=== PATIENT | male | born 2005 | race Caucasian/White ===

== ENCOUNTER 2025-03-22 02:31 | Inpatient (IN) ==
[2025-03-22] MEDS: SODIUM CHLORIDE 0.9% 1,000 ML IV ONE (03:10)
[2025-03-22 03:18] LABS: Hematocrit (blood only) 35.3 % (42.0-52.0); Hemoglobin 11.0 g/dl (14.0-18.0); Immature Granulocytes # (auto) 0.08 K/uL (0.01-0.20); Immature Granulocytes % (auto) 0.6 %; Mean Corpuscular Hemoglobin 23.4 pg (25.0-34.0); Mean Corpuscular Volume 75.1 fL (80.0-100.0); Platelet Count 481 K/uL (130-400); RDW Standard Deviation 39.4 fL (36.4-46.3); Red Blood Count 4.70 M/uL (4.70-6.10); White Blood Count 13.74 K/ul (4.8-10.8)
[2025-03-22 03:27] LABS: Appearance Urine Clear (Clear); Glucose Urine UA Negative (Negative)
[2025-03-22 03:37] LABS: Alanine Aminotransferase 13.0 U/L (7-52); Albumin Globulin Ratio 0.9 (0.9-2); Alkaline Phosphatase 57.0 U/L (34-104); Anion Gap 6.0 (3-11); Bilirubin,Total 0.2 mg/dl (0.2-1.0); Blood Urea Nitrogen 15.0 mg/dl (6-23); Calcium 9.1 mg/dl (8.6-10.3); Carbon Dioxide 25.0 mmol/L (21-32); Chloride 104.0 mmol/L (98-107); Creatinine Clr Calc Pharmacy 103.1 ml/min; Globulin 3.7 gm/dl (2.5-4.0); Glucose 133.0 mg/dl (70-99(Fasting)); Lipase 36.0 U/L (11-82); Potassium 3.7 mmol/L (3.5-5.1); Sodium 135.0 mmol/L (136-145); Total Protein 7.1 gm/dl (6.0-8.3)
[2025-03-22] MEDS: OPTIRAY 320 100ml IV ONE (03:55)
[2025-03-22] MEDS: PIPERACILLIN/TAZOBACTAM 4.5 GM/100 ML BAG IV ONE (04:27)
--- NOTE | 2025-03-22 04:29 | CT Scan Report ---
EXAM: CT abd pelvis IV con only CLINICAL HISTORY: perforated appy, no surg, abd pain TECHNIQUE: Contiguous axial images were obtained from the level of the diaphragm to the pubic symphysis with intravenous contrast. Coronal and sagittal reconstructions were likewise performed and indicated to increase the sensitivity for detecting clinically relevant pathology. If IV contrast material had not been administered, the likelihood of detecting abnormalities relevant to the patient's condition would have been substantially decreased. CT scan was performed according to ALARA (as low as reasonably achievable). 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 FINDINGS: The visualized lung bases are clear. The liver is normal in size and attenuation. No focal liver lesions are seen. There is no intra or extrahepatic biliary ductal dilatation. Hepatic vasculature is patent. The gallbladder is present. The spleen, pancreas, and adrenal glands are unremarkable. The kidneys are normal in size and attenuation. There is no hydronephrosis or perinephric fat stranding. No renal calculi or renal masses are identified. The ureters are normal in caliber and no ureteral calculi are seen. The bladder is normal in contour. Pelvic viscera are unremarkable. Severe concentric wall thickening is noted involving cecum, ileocecal junction and terminal ileum with moderate adjacent fat smudging. The appendix is inflamed with pelvic location with maximum diameter measures about 16 mm. Severe fat stranding is noted in right iliac fossa. Appendix shows patchy wall attenuation/discontinuity in the mid and distal portion- could be perforation- post oral contrast evaluation suggested. Moderate ascitic free fluid noted in lower abdomen and pelvis. Abdominal and pelvic vasculature is patent. No aggressive appearing osseous lesions are identified. IMPRESSION: 1. Severe concentric wall thickening is noted involving cecum, ileocecal junction and terminal ileum with moderate adjacent fat smudging.-stable. 2. The appendix is inflamed with pelvic location with maximum diameter measures about 16 mm. Severe fat stranding is noted in right iliac fossa. Appendix shows patchy wall attenuation/discontinuity in the mid and distal portion- could be perforation- post oral contrast evaluation suggested.-stable. 3. Moderate ascitic free fluid noted in lower abdomen and pelvis.-stable. 4. At present no obvious pneumoperitoneum seen. Electronically signed by García Goldstein 03-22-2025 04:28 AM
[2025-03-22] MEDS ORDERED: MoRPHine SULFATE 4 MG/ML 1 ML CARP\\VIAL IV PRN (05:09)
--- NOTE | 2025-03-22 05:17 | Emergency Department Note ---
History of Present Illness General Chief complaint: Abdominal Pain Stated complaint: ABD PAIN Time Seen by Provider: 03/22/25 02:40 History of Present Illness This is a 19-year-old male presenting to the emergency department for evaluation of right sided abdominal pain. Patient has a fairly complicated recent medical history. He initially presented to this ER on 03/17/2025, 5 days ago, where he was ultimately diagnosed with perforated appendicitis. Patient was admitted to this facility on IV antibiotics, and discharged on 03/20/2025 on oral antibiotics. Plan seem to be to treat any infection and then pursue appendectomy in the future. Patient states that he has had waxing and waning pain throughout the day. He may have some improvement of pain with eating, but has not had a bowel movement today. No difficulty urinating. He is without chest pain, chest tightness, or shortness of breath. He rates his discomfort a 7/10. Home Medications Medication Instructions Recorded Confirmed Type Lactobacillus acidophilus 10 10,000 mmu cells PO DAILY 03/17/25 03/22/25 History billion cell capsule (Probiotic) multivitamin 1 tab PO DAILY 03/17/25 03/22/25 History amoxicillin 875 mg-potassium 1 tab PO BID #20 tabs 03/20/25 03/22/25 Rx clavulanate 125 mg tablet Allergies Allergy/AdvReac Type Severity Reaction Status Date / Time No Known Allergies Allergy Verified 03/17/25 14:50 Past Med/Surg History Problem List (Updated 03/22/25 @ 06:31 by Spencer Sharif PA-C) Anemia Intra-abdominal abscess Abnormal computerized axial tomography of abdomen Dehydration, mild Perforated appendicitis (Acute) Acute appendicitis (Acute) Social History Smoking Status: Never smoker Hx Alcohol Use: No Hx Substance Use: No Preferred Language: Italian Communication Ability: Effective Center Specialists Required: No Beliefs That Will Affect Care: None Current Living Situation: Alone and Other Current Living Situation Comment: College Apartment Feels Safe at Home: Yes Assistive Devices: None Review of Systems A total of 10 systems reviewed and were otherwise negative Physical Exam Vital Signs Vital Signs - 24 hr 03/22/25 02:34 03/22/25 02:40 03/22/25 03:39 Temperature 36.7 C Temperature Source Oral Pulse Rate 110 H 94 H 90 Pulse Rate [Apical] Pulse Rate from SpO2 Sensor Pulse Rhythm Regular Pulse Rhythm [Apical] Respiratory Rate 18 18 Respiratory Effort / Characteristics Non-Labored Spontaneous Respiratory Depth Normal Respiratory Pattern Regular Blood Pressure 110/56 L Blood Pressure [Right Arm] Blood Pressure Mean 74 Blood Pressure Mean [Right Arm] Pulse Oximetry 99 99 Oxygen Delivery Method Room Air Room Air Sepsis Recent Fever Within 48 Hours No Sepsis New/Unexplained Change in Mental Status No Sepsis Action Taken by Nursing No Action Required 03/22/25 04:00 03/22/25 04:03 03/22/25 04:08 Temperature Temperature Source Pulse Rate 92 H Pulse Rate [Apical] 86 90 Pulse Rate from SpO2 Sensor 91 H Pulse Rhythm Pulse Rhythm [Apical] Regular Regular Respiratory Rate 15 16 15 Respiratory Effort / Characteristics Non-Labored Spontaneous Non-Labored Spontaneous Respiratory Depth Normal Deep Respiratory Pattern Regular Regular Blood Pressure 129/71 Blood Pressure [Right Arm] 119/57 L 129/71 Blood Pressure Mean 90 Blood Pressure Mean [Right Arm] 77 90 Pulse Oximetry 97 100 97 Oxygen Delivery Method Room Air Room Air Room Air Sepsis Recent Fever Within 48 Hours Sepsis New/Unexplained Change in Mental Status Sepsis Action Taken by Nursing 03/22/25 04:36 03/22/25 05:00 03/22/25 05:30 Temperature Temperature Source Pulse Rate 92 H 97 H Pulse Rate [Apical] Pulse Rate from SpO2 Sensor Pulse Rhythm Pulse Rhythm [Apical] Respiratory Rate 15 17 Respiratory Effort / Characteristics Respiratory Depth Respiratory Pattern Blood Pressure 119/57 L 116/56 L 112/65 Blood Pressure [Right Arm] Blood Pressure Mean 78 69 76 Blood Pressure Mean [Right Arm] Pulse Oximetry 97 98 Oxygen Delivery Method Room Air Room Air Sepsis Recent Fever Within 48 Hours Sepsis New/Unexplained Change in Mental Status Sepsis Action Taken by Nursing 03/22/25 06:00 03/22/25 06:12 03/22/25 06:15 Temperature 36.7 C Temperature Source Oral Pulse Rate 88 Pulse Rate [Apical] 88 Pulse Rate from SpO2 Sensor 84 Pulse Rhythm Pulse Rhythm [Apical] Regular Respiratory Rate 16 18 Respiratory Effort / Characteristics Non-Labored Spontaneous Respiratory Depth Normal Respiratory Pattern Regular Blood Pressure 109/66 Blood Pressure [Right Arm] 109/66 Blood Pressure Mean 80 Blood Pressure Mean [Right Arm] 80 Pulse Oximetry 99 97 Oxygen Delivery Method Room Air Room Air Sepsis Recent Fever Within 48 Hours Sepsis New/Unexplained Change in Mental Status Sepsis Action Taken by Nursing VITALS: Vitals are noted on the nurse's note and reviewed by myself. Vital signs with tachycardia. GENERAL: Well-developed, well-nourished, white male, who is mildly ill-appearing but nontoxic. He is cooperative and otherwise comfortable. HEAD: Normocephalic atraumatic. MOUTH: Mucous membranes moist. Pharynx without erythema, blood, or exudate. Uvula midline. Airway patent. NECK: Supple without nuchal rigidity. No lymphadenopathy. No thyromegaly. Cervical spine is nontender. HEART: Tachycardic rate with regular rhythm LUNGS: Clear to auscultation bilaterally without wheezes, rales or rhonchi. No retractions or accessory muscle use. ABDOMEN: Positive normal bowel sounds x 4. Soft, with lower tenderness on palpation. No distinct rebound or guarding. No CVA tenderness. MUSCULOSKELETAL: No muscle atrophy, erythema, or edema noted. Full range of motion in all extremities. Course Administered Medications Lactated Ringer's (Lr) 1,000 mls @ 100 mls/hr IV .Q10H ROWDY Stop: 03/25/25 05:44 Last Admin: 03/22/25 06:11 Dose: 100 mls/hr Documented By: JULIA Discontinued Medications Sodium Chloride (Nss) 1,000 mls @ 999 mls/hr IV .Q1H1M ONE Stop: 03/22/25 03:40 Last Infusion: 03/22/25 03:53 Dose: Infused Documented By: Admin: 03/22/25 03:10 Dose: 999 mls/hr Documented By: RENU Piperacillin Sod/Tazobactam Sod (Zosyn) 4.5 gm in 100 mls @ 200 mls/hr IV NOW ONE; Protocol Stop: 03/22/25 04:31 Last Infusion: 03/22/25 05:00 Dose: Infused Documented By: Admin: 03/22/25 04:27 Dose: 200 mls/hr Documented By: JULIA Ioversol (Optiray 320 100ml) 100 ml IV ONCE ONE Stop: 03/22/25 03:56 Last Admin: 03/22/25 03:55 Dose: 93 ml Documented By: JOANIE Ondansetron HCl (Ondansetron Inj 2 Mg/Ml 2 Ml Vial) 4 mg IV NOW STA Stop: 03/22/25 05:10 Last Admin: 03/22/25 05:44 Dose: Not Given Documented By: JULIA Medical Decision Making Differential Diagnosis Differential diagnosis: Etiologies such as biliary colic, cholecystitis, hepatitis, pancreatitis, cardiac disease, pancreatitis, gastritis, peptic ulcer disease, appendicitis, cystitis, diverticulitis, mesenteric ischemia, inflammatory bowel disease, ileus, bowel obstruction, testicular/adnexal torsion, aortic pathology, shingles, as well as others were considered Laboratory Data 03/22/25 03:03 03/22/25 03:03 Lab Results 03/22/25 Range/Units 03:03 WBC 13.74 H (4.8-10.8) K/ul RBC 4.70 (4.70-6.10) M/uL Hgb 11.0 L (14.0-18.0) g/dl Hct 35.3 L (42.0-52.0) % MCV 75.1 L (80.0-100.0) fL MCH 23.4 L (25.0-34.0) pg MCHC 31.2 L (32.0-36.0) g/dL RDW Std Deviation 39.4 (36.4-46.3) fL RDW Coeff of Merly 14.6 H (11.5-14.5) % Plt Count 481 H (130-400) K/uL MPV 8.3 L (9.4-12.4) fL Immature Gran % (Auto) 0.6 % Neut % (Auto) 80.6 % Lymph % (Auto) 10.3 % [place] % (Auto) 6.5 % Eos % (Auto) 1.8 % Baso % (Auto) 0.2 % Neut # (Auto) 11.07 H (1.40-6.50) K/uL Lymph # (Auto) 1.42 (1.20-3.40) K/uL [place] # (Auto) 0.89 H (0.11-0.59) K/uL Eos # (Auto) 0.25 (0.00-0.50) K/uL Baso # (Auto) 0.03 (0.00-0.20) K/uL Immature Gran # (Auto) 0.08 (0.01-0.20) K/uL PT 12.3 H (9.0-12.0) Seconds INR 1.1 (0.9-1.1) APTT 33 H (21-31) Seconds PTT Ratio 1.2 Sodium 135 L (136-145) mmol/L Potassium 3.7 (3.5-5.1) mmol/L Chloride 104 (98-107) mmol/L Carbon Dioxide 25 (21-32) mmol/L Anion Gap 6 (3-11) BUN 15 (6-23) mg/dl Creatinine 0.98 (0.6-1.4) mg/dl Est Cr Clr Drug Dosing 103.1 ml/min eGFR 113.21 BUN/Creatinine Ratio 15.3 (10-20) Glucose 133 H (70-99(Fasting)) mg/dl Lactate 1.3 (0.4-2.0) mmol/L Calcium 9.1 (8.6-10.3) mg/dl Total Bilirubin 0.2 (0.2-1.0) mg/dl AST 14 (13-39) U/L ALT 13 (7-52) U/L Alkaline Phosphatase 57 (34-104) U/L Total Protein 7.1 (6.0-8.3) gm/dl Albumin 3.4 (3.4-5.0) gm/dl Globulin 3.7 (2.5-4.0) gm/dl Albumin/Globulin Ratio 0.9 (0.9-2) Lipase 36 (11-82) U/L Urine Color Yellow Urine Appearance Clear (Clear) Urine pH 7.0 (4.5-7.5) Ur Specific [place] 1.021 (1.000-1.030) Urine Protein Negative (Negative) Urine Glucose (UA) Negative (Negative) Urine Ketones Negative (Negative) Urine Blood Negative (Negative) Urine Nitrite Negative (Negative) Urine Bilirubin Negative (Negative) Urine Urobilinogen Negative (Negative) Ur Leukocyte Esterase Negative (Negative) Urine Comment Imaging Data Radiologist's Impression: Abdomen/Pelvis CT 03/22/25 02:43 EXAM: CT abd pelvis IV con only CLINICAL HISTORY: perforated appy, no surg, abd pain TECHNIQUE: Contiguous axial images were obtained from the level of the diaphragm to the pubic symphysis with intravenous contrast. Coronal and sagittal reconstructions were likewise performed and indicated to increase the sensitivity for detecting clinically relevant pathology. If IV contrast material had not been administered, the likelihood of detecting abnormalities relevant to the patient's condition would have been substantially decreased. CT scan was performed according to ALARA (as low as reasonably achievable). 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 FINDINGS: The visualized lung bases are clear. The liver is normal in size and attenuation. No focal liver lesions are seen. There is no intra or extrahepatic biliary ductal dilatation. Hepatic vasculature is patent. The gallbladder is present. The spleen, pancreas, and adrenal glands are unremarkable. The kidneys are normal in size and attenuation. There is no hydronephrosis or perinephric fat stranding. No renal calculi or renal masses are identified. The ureters are normal in caliber and no ureteral calculi are seen. The bladder is normal in contour. Pelvic viscera are unremarkable. Severe concentric wall thickening is noted involving cecum, ileocecal junction and terminal ileum with moderate adjacent fat smudging. The appendix is inflamed with pelvic location with maximum diameter measures about 16 mm. Severe fat stranding is noted in right iliac fossa. Appendix shows patchy wall attenuation/discontinuity in the mid and distal portion- could be perforation- post oral contrast evaluation suggested. Moderate ascitic free fluid noted in lower abdomen and pelvis. Abdominal and pelvic vasculature is patent. No aggressive appearing osseous lesions are identified. IMPRESSION: 1. Severe concentric wall thickening is noted involving cecum, ileocecal junction and terminal ileum with moderate adjacent fat smudging.-stable. 2. The appendix is inflamed with pelvic location with maximum diameter measures about 16 mm. Severe fat stranding is noted in right iliac fossa. Appendix shows patchy wall attenuation/discontinuity in the mid and distal portion- could be perforation- post oral contrast evaluation suggested.-stable. 3. Moderate ascitic free fluid noted in lower abdomen and pelvis.-stable. 4. At present no obvious pneumoperitoneum seen. Electronically signed by García Goldstein 03-22-2025 04:28 AM MDM Narrative Physical exam and history were performed. Nursing notes, EMR, and Medication List were personally reviewed. No social concerns were identified as barriers to patients care. History was provided by the Patient. Patient appears to have recent history of perforated appendicitis. Patient has returned of abdominal pain. He is tachycardic but otherwise vitals are reassuring. IV access was established and labs were obtained. Patient was hydrated normal saline and sent to CT scan for imaging of his abdomen and pelvis. Patient's blood work is as above and was reviewed. He does have a slightly elevated white count of 13 which is increased from his discharge a count of 11. He is chronically anemic. He does not have significant electrolyte imbalance. Transaminases are not diagnostic. Lactic acid is negative. Blood cultures were performed. CT scan was independently reviewed by myself and radiology. Patient continues to demonstrate perforated appendicitis with additional inflammatory findings around the cecum and terminal ileum. Patient was ordered IV morphine, IV Zofran, and IV Zosyn. Escalation of care was considered, and felt to be necessary. Case was discussed with the on-call surgical team, who did evaluate the patient here in the ER. Patient was also discussed with the on-call hospitalist team who will admit the patient. Please see the specialist dictations for further patient course, plan, disposition. The chart was completed utilizing [employer] Speech Voice Recognition Software. Grammatical errors, random word insertions, pronoun errors, and incomplete sentences are an occasional consequence of this system due to software limitations, ambient noise, and hardware issues. Any formal questions or concerns about the content, text, or information contained within the body of this dictation should be directly addressed to the provider for clarification. Impression & Plan Perforated appendicitis Discharge Plan Visit Data Chief Complaint: Abdominal Pain Stated Complaint: ABD PAIN ED Provider: Mal Hutchison ED Midlevel Provider: Spencer Sharif Discharge Problem: Perforated appendicitis Patient Disposition: Being Evaluated by Hospitalist Condition: Fair Forms Stand Alone Forms: [facility] [employer] Prescriptions Prescriptions: No Action multivitamin Tablet 1 tab PO DAILY Rx Instructions: PER PT "OFF AND ON FOR A COUPLE DAYS". Probiotic 10 billion cell Capsule 10,000 mmu cells PO DAILY Rx Instructions: PER PT "OFF AND ON FOR A COUPLE DAYS". amoxicillin-pot clavulanate 875-125 mg tablet 1 tab PO BID Qty: 20 0RF Referrals Referrals: PCP,NO [Primary Care Provider] -
--- NOTE | 2025-03-22 05:34 | Surgery Consultation ---
Date of Consultation March 22, 2025 Assessment & Plan (1) Perforated appendicitis: Discussed with the treating emergency room physician the patient is going to be admitted on the hospitalist service surgical recommendations are as follows: While there is is concerned that the patient may have a perforated appendicitis there is also marked inflammation of the patient's cecum and terminal ileum raising the again the concern for inflammatory bowel disease The patient did have an IBD panel sent during his previous admissionthese results remain pending Would recommend providing analgesics Provide antiemetics if needed Hydrate the patient with IV fluids Would reinstitute intravenous antibioticsstatus he has already had Zosyn administered in the emergency department Serial labs to be followed Patient to be kept n.p.o. for the present time I discussed the case with my attending physician, Dr. Martin she feels to be best to employ conservative measures at this time due to the marked inflammation noted on CT scan with potential appendectomy to be performed at a later date with timing to be determined. Utilize only SCDs for DVT prevention, avoiding chemical means until is ascertain whether patient would require any procedural/surgical intervention Additional recommendations to be forthcoming based on his clinical course as it unfolds Supervising Physician Co-Signing Physician Notes This case has been discussed with the surgical PA. I agree with this plan. History of Present Illness Reason for Consultation: Abdominal pain History of Present Illness This is a 19-year-old male who was recently admitted to [facility] from March 18 until March 20 of this year. The patient presented with right lower quadrant abdominal pain. He did undergo CT scan of the abdomen and pelvis on the day of admission. This showed the patient had a distended ap pendix at 2 cm with thickening of the appendiceal wall compatible with acute appendicitis. Patient was also noted to have complex lesion in the right lower quadrant measuring approximately 7.5 cm containing air level which was felt to likely represent a phlegmon or early abscess with a contained appendiceal perforation. Patient was seen by general surgery and there is concern the patient may also have a component of inflammatory bowel disease and therefore GI consultation was obtained. While inflammatory bowel disease is not entirely ruled out they felt that this was unlikely and therefore no additional diagnostic testing was performed by gastroenterology and it was recommended the patient did undergo colonoscopy in approximately 6 to 8 weeks time. Due to concern for potential inflammatory bowel disease and the presence of a phlegmon General Surgery opted to treat the patient conservatively with intravenous antibiotics and plans for potential interval appendectomy in several weeks. The patient was ultimately discharged home after clinical improvement was noted on 03/20/2025. It is noted that the patient was receiving intravenous antibiotics in form of Zosyn while hospitalized and was discharged home on oral Augmentin which the patient claims he was taking as prescribed. The patient return to the emergency department because he notes over the 24 hours in which he was hide he was initially feeling better but developed worsening right lower quadrant pain prompting his visit to the emergency department. He has not had any nausea or vomiting. He denies any fevers, shakes, or chills. He merrily notes he has worsening right lower quadrant abdominal pain. Patient notes he does not have any chronic medical problems and has never had any prior surgeries. His most recent oral intake was at approximately 2:00 AM at which time he ate some crackers. Since arrival to the hospital this evening patient has had labs and imaging which independent reviewed. A CT scan of the abdomen pelvis was performed. This showed the patient had severe concentric wall thickening involving the cecum, ileocecal junction, and terminal ileum, along with moderate adjacent fat sludging. The appendix is inflamed on the study measuring approximately 16 mm with severe fat stranding in the right iliac fossa. The appendix showed some patchy wall attenuation with concern for potential perforation. There is moderate ascitic free fluid noted in the lower abdomen and pelvis. No obvious gross pneumoperitoneum was noted on this study. Labs included a CBC with a white blood cell count was elevated 13.7. Hemoglobin and hematocrit were 11.0 and 35.3. Platelet count is 4 81,000. Chemistry profile showed sodium was 135 with a normal potassium. BUN and creatinine are both normal. There is no elevation of LFTs or lipase and a urinalysis was not indicative of infection. At the time of my interview the patient was resting comfortably in bed he was in no distress at this time. Allergies Allergy/AdvReac Type Severity Reaction Status Date / Time No Known Allergies Allergy Verified 03/17/25 14:50 Home Medications Medication Instructions Recorded Confirmed Type Lactobacillus acidophilus 10 10,000 mmu cells PO DAILY 03/17/25 03/22/25 History billion cell capsule (Probiotic) multivitamin 1 tab PO DAILY 03/17/25 03/22/25 History amoxicillin 875 mg-potassium 1 tab PO BID #20 tabs 03/20/25 03/22/25 Rx clavulanate 125 mg tablet Patient History Social History Smoking Status: Never smoker Hx Alcohol Use: No Hx Substance Use: No Preferred Language: Kyrgyz Communication Ability: Effective Soap Drier Tender Required: No Beliefs That Will Affect Care: None Current Living Situation: Family Current Living Situation Comment: College Apartment Feels Safe at Home: Yes Assistive Devices: None Review of Systems Review of Systems: All systems reviewed & are unremarkable except as noted in HPI & below Physical Exam Constitutional: WD/WN, vitals as above Eyes: no conjunctival abnormality ENMT: Ears: no hearing impairment and no external ear abnormality Neck: trachea midline Respiratory: normal respiratory effort; no respiratory distress and no labored breathing Cardiovascular: Rate/Rhythm: regular rate and regular rhythm Vessels: dorsalis pedis pulses present Gastrointestinal (Abdomen): Abdomen is soft without distention or rigidity. At the time my exam he did not have rebound tenderness or guarding, he did have significant tenderness to palpation in the right lower quadrant with both light and deep palpation. Musculoskeletal: No calf tenderness Skin: no rashes Neurologic: moves all extremities Psychiatric: A+Ox3, euthymic affect Results & Data Vital Signs (Past 12 Hours) Vital Signs Temp Pulse Pulse Resp BP BP Pulse Ox 03/22/25 04:08 90 15 129/71 97 03/22/25 04:00 86 15 119/57 L 97 03/22/25 03:39 90 03/22/25 02:40 94 H 18 99 03/22/25 02:34 36.7 C 110 H 18 110/56 L 99 O2 Del Method 03/22/25 04:08 Room Air 03/22/25 04:00 Room Air 03/22/25 03:39 03/22/25 02:40 Room Air 03/22/25 02:34 Room Air PG Care Time/CCT Total # of Minutes Spent Total Time Spent with Patient: Total time spent is greater than 50% in coordination of care (as documented) at patient's floor/unit and/or counseling patient: Coding Level of Care Code 40511 IN/OBS CONSULT LVL 5,80M Diagnoses Perforated appendicitis K35.32
--- NOTE | 2025-03-22 05:38 | History & Physical Report ---
Date of Service March 22, 2025 Assessment & Plan (1) Acute appendicitis: (2) Anemia: Plan 20 [id number] PMHx of recent history of appendicitis with perforation presenting for abdominal pain. ED evaluation is concerning for persistent appendicitis with evidence of leukocytosis and anemia on labs. Does not appear septic. Pt will be admitted for acute appendicitis. #Appendicitis Recent admission + discharge (03/18/2025 to 03/20/2025) for appendicitis with contained perforation, managed medically. D/c on Augmentin. Worsening of symptoms. FMHx Crohn's disease however, pt has never undergone EGD/colonoscopy. S/p 1L NSS and Zosyn IV in ED. - CBC WBC 13.74, H/H 11/35.3, plt 418; CMP Na 135, glucose 133; lactate 1.3 - CBC, BMP am - CTAP severe concentric wall thickening with adjacent fat smudging, appendix inflamed at max 16mm with severe fat stranding and evidence of possible perforation, moderate ascitic free fluid noted, no obvious pneumoperitoneum - D/C Augmentin - NPO - IVF LR @ 100 mL/hr - Zofran prn N/V - Acetaminophen prn pain/fever, morphine prn severe pain - Zosyn IV - continue - Gen sx consulted - appreciate input + recs - Consider GI consult as appropriate - none placed at time of admission #Anemia Appearing to run at his baseline per our labs. Not noting any bleeding by his report. - CBC H/H 1135.3, microcytic/hypochromic pattern - Trend CBC - Iron panel, vitamin B12, and folate pending - CTAP revealing acute appendicitis as above Dispo: Admit, med/sx VTE Prophylaxis: SCDs This document was dictated utilizing [employer]. Please excuse any grammatical errors that may be secondary to use of this software. Admission and Anticipated Discharge Date Admission Date: 03/22/2025 History of Present Illness Chief Complaint: Abd pain Primary Care Provider: NO PCP 20 [id number] PMHx with recent appendicitis with perforation presenting for abdominal pain. Most recent hospital admission 03/18-03/20 for acute appendicitis with perforation, managed medically at that time and d/c home on oral antibiotics. 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 He describes it as a sharp pain that is an 9-10/10 on the pain scale at its worse and mainly only exacerbated with movement. When laying still, his pain is fairly controlled. He denies N/V/D. He has had some constipation, stating he has not had a normal BM since prior to his last hospital admission, is still passing gas however. Has not noticed bleeding anywhere. Denies F/C, CP, SOB, palpitations, weakness, dizziness, syncope, or falls. Was taking medications as prescribed. ED evaluation reveals CBC with leukocytosis 13.74, H/H 11.0/35.3, microcytic/hypochromic pattern, plt 481; CMP Na 135, glucose 133; lactate 1.3; UA negative for infection; CTAP severe concentric wall thickening with adjacent fat smudging, appendix inflamed at max 16mm with severe fat stranding and evidence of possible perforation, moderate ascitic free fluid noted, no obvious pneumoperitoneum.; Provided with 1L NSS, Zosyn 4.5g IV, Zofran 4mg IV, and morphine 4mg IV in ED. Please see Dr. De Luna's attestation for adjustments/additions to treatment plan. Allergies Allergy/AdvReac Type Severity Reaction Status Date / Time No Known Allergies Allergy Verified 03/17/25 14:50 Home Medications Medication Instructions Recorded Confirmed Type Lactobacillus acidophilus 10 10,000 mmu cells PO DAILY 03/17/25 03/22/25 History billion cell capsule (Probiotic) multivitamin 1 tab PO DAILY 03/17/25 03/22/25 History amoxicillin 875 mg-potassium 1 tab PO BID #20 tabs 03/20/25 03/22/25 Rx clavulanate 125 mg tablet Past Med/Surg History Problem List (Updated 03/22/25 @ 06:31 by Spencer Sharif PA-C) Anemia Intra-abdominal abscess Abnormal computerized axial tomography of abdomen Dehydration, mild Perforated appendicitis (Acute) Acute appendicitis (Acute) Social History Smoking Status: Never smoker Hx Alcohol Use: No Hx Substance Use: No Preferred Language: Kosovan Communication Ability: Effective Green Hide Inspector Required: No Beliefs That Will Affect Care: None Current Living Situation: Alone and Other Current Living Situation Comment: College Apartment Feels Safe at Home: Yes Assistive Devices: None Review of Systems Review of Systems: All systems reviewed & are unremarkable except as noted in Subjective Physical Exam Physical Exam: General: No acute distress Skin: Warm and dry Head: Normocephalic, atraumatic Eyes: PERRL, conjunctivae clear, sclera non-icteric ENT: External ear and ear canal without swelling; nose atraumatic; good dentition, tongue normal appearance, pharynx normal Neck: Supple, no LAD Cardio: RRR, no M/G/R, S1 and S2 normal Resp: No respiratory distress, Lungs CTA in all lobes bilaterally, no wheezes, rales, or rhonchi Abdomen: Soft, symmetric, tenderness to palpation over RLQ; No guarding or signs of peritonitis; No masses or hepatosplenomegaly; Bowel sounds normoactive MSK: No deformities; pulses palpable and equal; no edema. Neuro: Awake, alert; Sensation intact bilaterally; CN grossly intact Psych: Appropriate mood and affect; good judgement and insight. Results & Data Results & Data Vital Signs (Past 12 Hours) Vital Signs Temp Pulse Pulse Resp BP BP Pulse Ox 03/22/25 04:08 90 15 129/71 97 03/22/25 04:00 86 15 119/57 L 97 03/22/25 03:39 90 03/22/25 02:40 94 H 18 99 03/22/25 02:34 36.7 C 110 H 18 110/56 L 99 O2 Del Method 03/22/25 04:08 Room Air 03/22/25 04:00 Room Air 03/22/25 03:39 03/22/25 02:40 Room Air 03/22/25 02:34 Room Air Laboratory Results 03/22/25 03:03 Aerobic Blood Culture - Pending Blood Anaerobic Blood Culture - Pending 03/22/25 03:02 Aerobic Blood Culture - Pending Blood Anaerobic Blood Culture - Pending 03/22/25 03:03 WBC 13.74 H RBC 4.70 Hgb 11.0 L Hct 35.3 L MCV 75.1 L MCH 23.4 L MCHC 31.2 L RDW Std Deviation 39.4 RDW Coeff of [place]ly 14.6 H Plt Count 481 H MPV 8.3 L Immature Gran % (Auto) 0.6 Neut % (Auto) 80.6 Lymph % (Auto) 10.3 [place] % (Auto) 6.5 Eos % (Auto) 1.8 Baso % (Auto) 0.2 Neut # (Auto) 11.07 H Lymph # (Auto) 1.42 [place] # (Auto) 0.89 H Eos # (Auto) 0.25 Baso # (Auto) 0.03 Immature Gran # (Auto) 0.08 Sodium 135 L Potassium 3.7 Chloride 104 Carbon Dioxide 25 Anion Gap 6 BUN 15 Creatinine 0.98 Est Cr Clr Drug Dosing 103.1 eGFR 113.21 BUN/Creatinine Ratio 15.3 Glucose 133 H Lactate 1.3 Calcium 9.1 Total Bilirubin 0.2 AST 14 ALT 13 Alkaline Phosphatase 57 Total Protein 7.1 Albumin 3.4 Globulin 3.7 Albumin/Globulin Ratio 0.9 Lipase 36 Urine Color Yellow Urine Appearance Clear Urine pH 7.0 Ur Specific [place] 1.021 Urine Protein Negative Urine Glucose (UA) Negative Urine Ketones Negative Urine Blood Negative Urine Nitrite Negative Urine Bilirubin Negative Urine Urobilinogen Negative Ur Leukocyte Esterase Negative Urine Comment Diagnostic Findings Abdomen/Pelvis CT 03/22/25 02:43 EXAM: CT abd pelvis IV con only CLINICAL HISTORY: perforated appy, no surg, abd pain TECHNIQUE: Contiguous axial images were obtained from the level of the diaphragm to the pubic symphysis with intravenous contrast. Coronal and sagittal reconstructions were likewise performed and indicated to increase the sensitivity for detecting clinically relevant pathology. If IV contrast material had not been administered, the likelihood of detecting abnormalities relevant to the patient's condition would have been substantially decreased. CT scan was performed according to ALARA (as low as reasonably achievable). COMPARISON: 22:00:27 SHIPPING COORDINATOR. FINDINGS: The visualized lung bases are clear. The liver is normal in size and attenuation. No focal liver lesions are seen. There is no intra or extrahepatic biliary ductal dilatation. Hepatic vasculature is patent. The gallbladder is present. The spleen, pancreas, and adrenal glands are unremarkable. The kidneys are normal in size and attenuation. There is no hydronephrosis or perinephric fat stranding. No renal calculi or renal masses are identified. The ureters are normal in caliber and no ureteral calculi are seen. The bladder is normal in contour. Pelvic viscera are unremarkable. Severe concentric wall thickening is noted involving cecum, ileocecal junction and terminal ileum with moderate adjacent fat smudging. The appendix is inflamed with pelvic location with maximum diameter measures about 16 mm. Severe fat stranding is noted in right iliac fossa. Appendix shows patchy wall attenuation/discontinuity in the mid and distal portion- could be perforation- post oral contrast evaluation suggested. Moderate ascitic free fluid noted in lower abdomen and pelvis. Abdominal and pelvic vasculature is patent. No aggressive appearing osseous lesions are identified. IMPRESSION: 1. Severe concentric wall thickening is noted involving cecum, ileocecal junction and terminal ileum with moderate adjacent fat smudging.-stable. 2. The appendix is inflamed with pelvic location with maximum diameter measures about 16 mm. Severe fat stranding is noted in right iliac fossa. Appendix shows patchy wall attenuation/discontinuity in the mid and distal portion- could be perforation- post oral contrast evaluation suggested.-stable. 3. Moderate ascitic free fluid noted in lower abdomen and pelvis.-stable. 4. At present no obvious pneumoperitoneum seen. Electronically signed by García Goldstein 03-22-2025 04:28 AM Medications Administered 1L NSS Zosyn 4.5g IV Ondansetron 4mg IV Morphine 4mg IV Code Status & VTE Plan Code Status Full Supervising Physician Co-Signing Physician Notes Patient seen and examined, chart reviewed, case discussed with SHEELA Mathias and I agree with the assessment and plan as above. Patient with recently perforated appendicities treated with antibiotics returning with abdominal pain Nontoxic in appearance. Abdomen mildly tender with no rebound/guarding Zosyn, IVF, Pain control for now Appreciate Surgery input Remainder as above PG Care Time/CCT Total # of Minutes Spent Total Time Spent with Patient: Total time spent is greater than 50% in coordination of care (as documented) at patient's floor/unit and/or counseling patient: Coding Level of Care Code 70861 INT INP/OBS CARE 75MIN Diagnoses Acute appendicitis K35.33 Acute appendicitis type: with localized peritonitis Appendicitis abscess presence: with abscess Appendicitis gangrene presence: unspecified whether gangrene present Appendicitis perforation presence: unspecified whether perforation present Anemia D64.9 (1) Acute appendicitis Acute appendicitis type: with localized peritonitis Appendicitis abscess presence: with abscess Appendicitis gangrene presence: unspecified whether gangrene present Appendicitis perforation presence: unspecified whether perforation present Qualified Code(s): K35.33 - Acute appendicitis with perforation, localized peritonitis, and gangrene, with abscess
[2025-03-22] MEDS ORDERED: ONDANSETRON INJ 2 MG/ML 2 ML VIAL IV PRN ×2 (05:42→09:01)
[2025-03-22] MEDS ORDERED: MoRPHine SULFATE 2 MG/ML CARP IV PRN (05:42)
[2025-03-22] MEDS: ONDANSETRON INJ 2 MG/ML 2 ML VIAL IV STA (05:44)
[2025-03-22] MEDS: LACTATED RINGER'S 1,000 ML IV SCH (06:11)
[2025-03-22 06:25] LABS: INR 1.1 (0.9-1.1); Partial Thromboplastin Time 33 Seconds (21-31); Prothrombin Time 12.3 Seconds (9.0-12.0)
[2025-03-22] MEDS: ACETAMINOPHEN 500 MG TAB PO PRN (06:49)
[2025-03-22] MEDS ORDERED: MELATONIN 3 MG TAB PO PRN (09:01)
[2025-03-22] MEDS: PIPERACILLIN/TAZOBACTAM 4.5 GM/100 ML BAG IV SCH (09:59)
--- NOTE | 2025-03-22 15:25 | Hospitalist Progress Note ---
Date of Service March 22, 2025 Assessment & Plan (1) Acute appendicitis: (2) Anemia: Plan 20 [id number] PMHx of recent history of appendicitis with perforation presenting for abdominal pain. ED evaluation is concerning for persistent appendicitis with evidence of leukocytosis and anemia on labs. Does not appear septic. Pt will be admitted for acute appendicitis. #Appendicitis Recent admission (03/18/2025 to 03/20/2025) for appendicitis with contained perforation, managed medically. D/c on Augmentin. Worsening of symptoms. FMHx Crohn's disease however, pt has never undergone EGD/colonoscopy. S/p 1L NSS and Zosyn IV in ED. GI was consulted last admission and sent off studies for IBD which are still pending, and recommended colonoscopy in 4 to 6 weeks. Leukocytosis at 13, worse from recent dischargecontinue to trend - CTAP severe concentric wall thickening with adjacent fat smudging, appendix inflamed at max 16mm with severe fat stranding and evidence of possible perforation, moderate ascitic free fluid noted, no obvious pneumoperitoneum continue Zosyn General Surgery consulted, awaiting for patient to be seen by surgical attending, no plans for surgery documented but patient remains n.p.o. continue IV fluids while n.p.o. - Acetaminophen prn pain/fever, morphine prn severe pain #Anemia Appearing to run at his baseline per our labs. Not noting any bleeding by his report. iron studies consistent with iron deficiency anemia last admission, B12 and folate and TSH were within normal limits. Did receive 1 dose of IV Venofer last admission trend hemoglobin, consider additional IV Venofer pending course of infection Dispo: continued inpatient stay for IV antibiotics, awaiting surgical input VTE Prophylaxis: SCDs mother updated at bedside 03/22 Admission and Anticipated Discharge Date Admission Date: March 22, 2025 Subjective Patient seen lying in bed, mother present at bedside still having abdominal pain, worse when walking. States that when he was eating a low residue diet the food was not making his pain worse. Reports that he has never had issues with changes in his bowels even prior to this acute episodes. Normally does not have abdominal pain on a daily basis Mother expresses concerns about what the next episode be if he does not have surgery as antibiotics were not helping at home Review of Systems Review of Systems: All systems reviewed & are unremarkable except as noted in Subjective Physical Exam Physical Exam: General: NAD, VS as above Resp: normal respiratory effort, lungs clear to auscultation CV: RRR, no murmur, Abd: normal bowel sounds, tenderness, worse in the right lower quadrant with involuntary guarding, no rebound Extremities: Moves all extremities, no edema Neuro: A&O x3, Skin: intact, no lesions noted Results & Data Results & Data Vital Signs (Past 12 Hours) Vital Signs Temp Pulse Pulse Resp BP BP Pulse Ox 03/22/25 14:00 64 16 98/65 L 97 03/22/25 12:38 66 16 97 03/22/25 09:00 61 16 103/66 97 03/22/25 08:16 65 03/22/25 06:36 78 20 95 03/22/25 06:15 98.1 F 03/22/25 06:12 109/66 03/22/25 06:12 88 18 109/66 97 03/22/25 06:00 88 16 109/66 99 03/22/25 05:30 97 H 17 112/65 98 03/22/25 05:00 92 H 15 116/56 L 97 03/22/25 04:36 119/57 L 03/22/25 04:08 90 15 129/71 97 03/22/25 04:03 92 H 16 129/71 100 03/22/25 04:00 86 15 119/57 L 97 03/22/25 03:39 90 O2 Del Method 03/22/25 14:00 Room Air 03/22/25 12:38 Room Air 03/22/25 09:00 Room Air 03/22/25 08:16 03/22/25 06:36 Room Air 03/22/25 06:15 03/22/25 06:12 03/22/25 06:12 Room Air 03/22/25 06:00 Room Air 03/22/25 05:30 Room Air 03/22/25 05:00 Room Air 03/22/25 04:36 03/22/25 04:08 Room Air 03/22/25 04:03 Room Air 03/22/25 04:00 Room Air 03/22/25 03:39 PG Care Time/CCT Total # of Minutes Spent Total Time Spent with Patient: Total time spent is greater than 50% in coordination of care (as documented) at patient's floor/unit and/or counseling patient: Coding Level of Care Code None Diagnoses Acute appendicitis K35.33 Acute appendicitis type: with localized peritonitis Appendicitis abscess presence: with abscess Appendicitis gangrene presence: unspecified whether gangrene present Appendicitis perforation presence: unspecified whether perforation present Anemia D64.9 (1) Acute appendicitis Acute appendicitis type: with localized peritonitis Appendicitis abscess presence: with abscess Appendicitis gangrene presence: unspecified whether gangrene present Appendicitis perforation presence: unspecified whether perforation present Qualified Code(s): K35.33 - Acute appendicitis with perforation, localized peritonitis, and gangrene, with abscess
[2025-03-23] MEDS: ACETAMINOPHEN 1,000 MG/100 ML VIAL IV PRN (03:48)
[2025-03-23] MEDS: MoRPHine SULFATE 4 MG/ML 1 ML CARP\\VIAL IV PRN (04:42)
[2025-03-23] MEDS: HYDROmorphone INJ 0.5 MG/0.5 ML SYR IV STA (06:48)
[2025-03-23 08:55] LABS: Hematocrit (blood only) 34.4 % (42.0-52.0); Hemoglobin 10.6 g/dl (14.0-18.0); Mean Corpuscular Hemoglobin 23.4 pg (25.0-34.0); Mean Corpuscular Volume 75.9 fL (80.0-100.0); Platelet Count 442 K/uL (130-400); RDW Standard Deviation 40.3 fL (36.4-46.3); Red Blood Count 4.53 M/uL (4.70-6.10); White Blood Count 17.43 K/ul (4.8-10.8)
[2025-03-23 09:30] LABS: Anion Gap 5.0 (3-11); Blood Urea Nitrogen 9.0 mg/dl (6-23); Calcium 8.7 mg/dl (8.6-10.3); Carbon Dioxide 26.0 mmol/L (21-32); Chloride 107.0 mmol/L (98-107); Creatinine Clr Calc Pharmacy 121.7 ml/min; Glucose 95.0 mg/dl (70-99(Fasting)); Potassium 4.1 mmol/L (3.5-5.1); Sodium 138.0 mmol/L (136-145)
[2025-03-23] MEDS ORDERED: PROPOFOL IV EMULSION 10 MG/ML 20 ML VIAL IV ONE (10:44)
[2025-03-23] MEDS ORDERED: ROCURONIUM BROMIDE 10 MG/ML 5 ML VIAL IV ONE (10:44)
[2025-03-23] MEDS ORDERED: LIDOCAINE 2% 2 ML VIAL/AMP(20MG/ML) INFIL ONE (10:44)
--- NOTE | 2025-03-23 11:09 | Hospitalist Progress Note ---
Date of Service March 23, 2025 Assessment & Plan (1) Acute appendicitis: (2) Anemia: Plan 20 [id number] PMHx of recent history of appendicitis with perforation presenting for abdominal pain. ED evaluation is concerning for persistent appendicitis with evidence of leukocytosis and anemia on labs. Does not appear septic. Pt will be admitted for acute appendicitis. #Appendicitis Recent admission (03/18/2025 to 03/20/2025) for appendicitis with contained perforation, managed medically. D/c on Augmentin. Worsening of symptoms. FMHx Crohn's disease however, pt has never undergone EGD/colonoscopy. S/p 1L NSS and Zosyn IV in ED. GI was consulted last admission and sent off studies for IBD which are still pending, and recommended colonoscopy in 4 to 6 weeks. CTAP severe concentric wall thickening with adjacent fat smudging, appendix inflamed at max 16mm with severe fat stranding and evidence of possible perforation, moderate ascitic free fluid noted, no obvious pneumoperitoneum continue Zosyn Leukocytosis continues to worsen despite antibiotics General Surgery consulted - no updated not from 03/22, but NPO for possible OR today 03/23 Continue IV fluids while n.p.o. Pain control: Acetaminophen prn pain/fever, morphine prn severe pain tendress and abd exam has worsened, WBC increasing - continue to trend #Anemia Appearing to run at his baseline per our labs. Not noting any bleeding by his report. iron studies consistent with iron deficiency anemia last admission, B12 and folate and TSH were within normal limits. Did receive 1 dose of IV Venofer last admission trend hemoglobin, consider additional IV Venofer pending course of infection Dispo: continued inpatient stay for IV antibiotics, awaiting surgical input VTE Prophylaxis: SCDs mother updated at bedside 03/22, father updated 03/23 Admission and Anticipated Discharge Date Admission Date: March 22, 2025 Subjective Patient seen lying in bed, father present at bedside Jonathan reports two episodes of pain overnight, requiring IV pain medications. Feels like pain is worse today, has not needed IV meds, but also has barely moved Denies fevers or chills Father and patient express concerns about next steps if no surgery is planned Review of Systems Review of Systems: All systems reviewed & are unremarkable except as noted in Subjective Physical Exam Physical Exam: General: NAD, VS as above Resp: normal respiratory effort, lungs clear to auscultation CV: RRR, no murmur, Abd: normal bowel sounds, tenderness, worse in the right lower quadrant with involuntary guarding - guarding and tenderness worse than prior day Extremities: Moves all extremities, no edema Neuro: A&O x3, Skin: intact, no lesions noted Results & Data Results & Data Vital Signs (Past 12 Hours) Vital Signs Temp Pulse Resp BP Pulse Ox O2 Del Method 03/23/25 06:51 97.9 F 67 16 107/62 97 Room Air Laboratory Results cbc and chemsitry reviewed PG Care Time/CCT Total # of Minutes Spent Total Time Spent with Patient: Total time spent is greater than 50% in coordination of care (as documented) at patient's floor/unit and/or counseling patient: Coding Level of Care Code 02865 SUB INP/OBS CARE 3/50MIN Diagnoses Acute appendicitis K35.33 Acute appendicitis type: with localized peritonitis Appendicitis abscess presence: with abscess Appendicitis gangrene presence: unspecified whether gangrene present Appendicitis perforation presence: unspecified whether perforation present Anemia D64.9 (1) Acute appendicitis Acute appendicitis type: with localized peritonitis Appendicitis abscess presence: with abscess Appendicitis gangrene presence: unspecified whether gangrene present Appendicitis perforation presence: unspecified whether perforation present Qualified Code(s): K35.33 - Acute appendicitis with perforation, localized peritonitis, and gangrene, with abscess
--- NOTE | 2025-03-23 11:26 | Surgery Progress Note ---
Date of Service March 23, 2025 Assessment & Plan (1) Perforated appendicitis: Plan: Patient here w/ abdominal pain and 2nd admission for concern for perforated appendicitis. -On this admissions CT scan there is severe concentric wall thickening is noted involving cecum, ileocecal junction and terminal ileum; the appendix is inflammed measuring 16mm with severe fat straining and probable perforation -WBC increased today 17 (13). Vitals are stable and patient is afebrile -He reported some worsening pain overnight. feeling okay at the moment -On exam abdomen is tender to palpation in the RLQ -family questioning if GI evaluation would be beneficial again; they were on board last admission and recommended abx and outpatient c-scope. he has IBD labs that remain pending. not sure they would have much to add at this time acutely. -At this point given patient is not making meaningful improvements with conservative measures we will opt to proceed with surgical intervention for diagnostic laparoscopy, abdominal washout, drain placement, and possible cara endectomy Admission and Anticipated Discharge Date Admission Date: March 22, 2025 Supervising Physician Co-Signing Physician Notes I have seen this patient this am. Due to increasing leukocytosis during a re- admission on IV abx, and significant amount of fluid in the abdomen, we will proceed to surgery for exploratory laparoscopy, intra-abdominal wash out, possible appendectomy and all other indicated procedures. His father was present. I explained the imaging, intra-abdominal collections, infection, varying presentations for appendicitis vs Crohn's, surgical management options and conservative measures. We also discussed the possibility of IR drainage in some cases. While I did explain that our IR team would not likely agree to percutaneously drain this particular fluid, we did still reach out to them to give the patient and his father piece of mind. IR confirmed that that do not believe this is a case they would take and advised surgical management if an intervention was needed. After discussing all of the risks, benefits and alternatives with the patient, they finally did decide to move forward with surgical intervention due to his ongoing symptoms and increasing leukocytosis. Consent has been obtained. Subjective Patient doing okay this AM. reported worsening pain that occurred overnight. no nausea/vomiting. passing minimal flatus. hurts more when voiding, but no issues with peeing. Physical Exam Physical Exam: awake, no distress Respiratory: normal respiratory effort Gastrointestinal (Abdomen): Percussion/Palpation: + abdomen tender (ttp RLQ) and abdomen soft Results & Data Vital Signs (Past 12 Hours) Vital Signs Temp Pulse Resp BP Pulse Ox O2 Del Method 03/23/25 06:51 97.9 F 67 16 107/62 97 Room Air PG Care Time/CCT Total # of Minutes Spent Total Time Spent with Patient: Total time spent is greater than 50% in coordination of care (as documented) at patient's floor/unit and/or counseling patient: Coding Level of Care Code 60438 SUB INP/OBS CARE 08/12MIN Diagnoses Perforated appendicitis K35.32
[2025-03-23] MEDS ORDERED: MIDAZOLAM HCL 1 MG/ML 2ML VIAL ONE (15:14)
[2025-03-23] MEDS ORDERED: ONDANSETRON INJ 2 MG/ML 2 ML VIAL ONE (15:14)
[2025-03-23] MEDS ORDERED: SUCCINYLCHOLINE CHLORIDE 20 MG/ML 10 ML VIAL IV ONE (15:14)
[2025-03-23] MEDS ORDERED: ATROPINE SULFATE 0.1 MG/ML 10ML SYR IV PRN (16:39)
[2025-03-23] MEDS ORDERED: ONDANSETRON INJ 2 MG/ML 2 ML VIAL IV PRN (16:39)
--- NOTE | 2025-03-23 16:39 | Anesthesiology Consultation ---
Date of Service March 23, 2025 Assessment & Plan Chart Review Chart Review: Acceptable Risk for Surgery and Patient NOT seen in Pre Admission Testing Consults Requested none History Surgery Operation Date: 03/23/25 08:40 Proposed Procedures p Diagnostic Laparoscopy with Washout and Possible Appendectomy - Jessica Hampton DO Height/Weight Height: 5 ft 10 in Weight: 60.6 kg Allergies Allergy/AdvReac Type Severity Reaction Status Date / Time No Known Allergies Allergy Verified 03/17/25 14:50 Medications Home Medications Medication Instructions Recorded Confirmed Last Taken Lactobacillus acidophilus 10 10,000 mmu cells PO DAILY 03/17/25 03/22/25 Unknown billion cell capsule (Probiotic) multivitamin 1 tab PO DAILY 03/17/25 03/22/25 Unknown amoxicillin 875 mg-potassium 1 tab PO BID #20 tabs 03/20/25 03/22/25 Unknown clavulanate 125 mg tablet Active Medications Generic Name Dose Route Start Last Admin Trade Name Freq PRN Reason Stop Dose Admin Acetaminophen 1,000 mg 03/22/25 05:42 03/22/25 06:49 Acetaminophen 500 Mg Tab PO 04/21/25 05:41 1,000 mg Q8H PRN Administration Pain & Pre PT Lactated Ringer's 1,000 mls @ 100 mls/hr 03/22/25 05:45 03/23/25 14:21 Lr IV 03/25/25 05:44 100 mls/hr .Q10H ROWDY Administration Piperacillin Sod/Tazobactam Sod 4.5 gm in 100 mls @ 25 mls/hr 03/22/25 09:30 03/23/25 14:42 Zosyn IV 04/01/25 09:29 Infused Q8H ROWDY Infusion Protocol Acetaminophen 1,000 mg in 100 mls @ 400 mls/hr 03/23/25 03:40 03/23/25 04:19 Ofirmev IV 03/25/25 03:39 Infused Q8H PRN Infusion Pain or Fever Morphine Sulfate 4 mg 03/22/25 05:42 03/23/25 04:42 Morphine Sulfate 4 Mg/Ml 1 Ml Carp\Vial IV 04/05/25 05:41 4 mg Q3H PRN Administration Pain (6,7,8,9,10) NPO Date Last Intake of Fluids: 03/22/25 Time Last Intake of Fluids: 23:59 Date Last Intake of Solids: 03/22/25 Time Last Intake of Solids: 23:59 Social History Smoking Status: Never smoker Hx Alcohol Use: No Hx Substance Use: No Physical Exam Vital Signs Last Vital Signs Temp 98.4 F 03/23/25 16:02 Pulse 78 03/23/25 16:02 Resp 18 03/23/25 16:02 BP 112/52 L 03/23/25 16:02 Pulse Ox 98 03/23/25 16:02 O2 Del Method Room Air 03/23/25 16:02 Testing Laboratory Results 03/23/25 08:19 03/23/25 08:19 PT 12.3 Seconds (9.0-12.0) H 03/22/25 03:03 INR 1.1 (0.9-1.1) 03/22/25 03:03 APTT 33 Seconds (21-31) H 03/22/25 03:03 Urine Color Yellow 03/22/25 03:03 Urine Appearance Clear (Clear) 03/22/25 03:03 Urine pH 7.0 (4.5-7.5) 03/22/25 03:03 Ur Specific [place] 1.021 (1.000-1.030) 03/22/25 03:03 Urine Protein Negative (Negative) 03/22/25 03:03 Urine Glucose (UA) Negative (Negative) 03/22/25 03:03 Urine Ketones Negative (Negative) 03/22/25 03:03 Urine Nitrite Negative (Negative) 03/22/25 03:03 Ur Leukocyte Esterase Negative (Negative) 03/22/25 03:03 03/22/25 03:03 Aerobic Blood Culture - Preliminary Blood No growth in Aerobic bottle after 24 hours. Anaerobic Blood Culture - Preliminary No growth in Anaerobic bottle after 24 hours. 03/22/25 03:02 Aerobic Blood Culture - Preliminary Blood No growth in Aerobic bottle after 24 hours. Anaerobic Blood Culture - Preliminary No growth in Anaerobic bottle after 24 hours.
[2025-03-23] MEDS ORDERED: DEXAMETHASONE SOD INJ 4 MG/ML VIAL ONE (17:03)
[2025-03-23] MEDS ORDERED: SUGAMMADEX SODIUM 200 MG/2 ML VIAL IV ONE (17:41)
[2025-03-23] MEDS: BUPIVACAINE/EPINEPHRINE 0.5% MPF 1:200,000 30 ML VIAL ONE (17:46)
[2025-03-23] MEDS ORDERED: KETOROLAC 30 MG/ML VIAL ONE (17:48)
--- NOTE | 2025-03-23 18:01 | Operative Report ---
[facility] Post Operative Report Pre & Post Diagnosis Operation Date: 03/23/25 08:40 Pre-Op Diagnosis: Perforated appendicitis Post-Op Diagnosis: Perforated appendicitis I identified the patient and participated in the time-out.: Yes Procedure Operation Date: 03/23/25 08:40 Actual Procedures p Diagnostic Laparoscopy, Evacuation of Abdominal Ascites and Insertion of Drain. (Not Applicable) - Jessica Hampton DO Surgeon Jessica Hampton DO Sample Wrapper NANETTE Nicolas Estimated Blood Loss 2 Findings See Below Large volume physiologic fluid along the right upper quadrant, right lower quadrant and pelvis. Flank lung changes involving a portion of the omentum that was very thickened and encased on the terminal ileum and cecum. Purulent exudate along the right paracolic gutter noted after adhesed thickened cecal encased omentum was peeled away. Specimens None Drains 19 Fr MIGUEL Anesthesia Type General Complications None Indications Patient previously presented to the emergency room on 03/18/2025 with a complaint of abdominal pain. CT abdomen pelvis was performed with evidence for moderate volume ascites, possible rupture appendix/phlegmon midline changes at the right lower quadrant and questionable extensive inflammation involving the terminal ileum and cecum. At that time the patient was started on a conservative treatment with IV antibiotics and was improving. He was discharged home to finish an oral course of antibiotics and return to the ED the following day with recurrent symptoms. His white blood cell count at that time was increasing and continued to increase this a.m. Interventional radiology confirmed that this was not the case in which they could be of any assistance. After further discussion with the patient and his father they opted to proceed with surgery for expected exploratory laparoscopy and abdominal washout possible appendectomy. Description of Procedure The patient was brought back to the operating room and placed on the operating room table in supine position. He was connected to cardiac and oxygen monitoring, supplemental O2 was provided and SCDs were applied to bilateral l ower extremities. The abdomen was prepped and draped in typical sterile fashion a timeout was conducted. Local anesthetic was used anesthetize skin and subcutaneous tissues prior to making incisions and incisions were made with 11 blade. Intra-abdominal access was gained at the infraumbilical fold using a Veress needle which was confirmed with a saline drop test. CO2 insufflation was initiated pneumoperitoneum was created to a goal pressure of 15 mmHg. Once this pressure was reached, a 5mm trocar was inserted under direct visualization using a 5 mm laparoscope and an Optiview port. Physiologic fluid was identified in the pelvis and this was suctioned away. A dense and thickened appearing omentum was adhesed along the right paracolic sidewall extending to the anterior abdomen. This was able to be slowly and gently teased down to mobilize this area for further inspection. There were a few small areas of exudative debris identified that were removed. What appeared to be a small portion of cecum and terminal ileum were densely adhesed to the thickened, firm omentum with no plane of dissection appearing to be heavy phlegmon. Secondary to the inability to safely dissect in this area to find an appendix, this was left in situ for ongoing conservative management. The physiologic fluid had been thoroughly suctioned away. A 19 Chinese MIGUEL drain was inserted from a separate incision created at the right lower quadrant and the drain was placed to extend into the pelvis. The instruments were removed. CO2 insufflation was discontinued and excess pneumoperitoneum was evacuated. The trocars were removed. Additional local anesthetic was used to anesthetize the skin incisions. The infraumbilical and left lower quadrant 5 mm trocar sites were approximated the level of the skin using 4-0 Vicryl suture. The abdomen was wiped clean with a saline soaked lap pad and dried and Dermabond was used to further seal incisions. The patient tolerated the procedure well. He was awakened from anesthesia, the secure airway was removed and he was transferred to recovery in stable condition. I attest to the content of the Intraoperative Record and any orders documented therein. Any exceptions are noted below.
--- NOTE | 2025-03-23 18:23 | Anesthesiology Progress Note ---
Date of Service March 23, 2025 Anesthesia Post Procedure Vital Signs Vital Signs: Temp Pulse Pulse Pulse Resp BP Pulse Ox 03/23/25 18:15 72 18 103/47 L 95 03/23/25 18:05 85 12 97/49 L 99 03/23/25 17:59 97.3 F L 73 20 99/45 L 99 03/23/25 16:02 98.4 F 78 78 18 112/52 L 98 03/23/25 15:25 98.2 F 100 H 18 97/59 L 98 03/23/25 06:51 97.9 F 67 16 107/62 97 03/22/25 22:39 98.1 F 82 16 97/58 L 98 03/22/25 18:44 97.2 F L 74 18 112/70 98 O2 Del Method O2 Flow Rate 03/23/25 18:15 Room Air 03/23/25 18:05 Oxymask 5 03/23/25 17:59 Oxymask 5 03/23/25 16:02 Room Air 03/23/25 15:25 Room Air 03/23/25 06:51 Room Air 03/22/25 22:39 Room Air 03/22/25 18:44 Room Air Pain Intensity Abdomen: Pain Intensity: 6 Transfer of Care Handoff Completed per policy Notes Mental Status: alert / awake / arousable and participated in evaluation Patient Amnestic to Procedure: Yes Nausea / Vomiting: adequately controlled Pain: adequately controlled Airway Patency, RR, SpO2: stable & adequate BP & HR: stable & adequate Hydration State: stable & adequate Anesthetic Complications: no major complications apparent and Pt Satisfied with anesthetic care
[2025-03-24 06:51] LABS: Hematocrit (blood only) 31.3 % (42.0-52.0); Hemoglobin 9.5 g/dl (14.0-18.0); Red Blood Count 4.06 M/uL (4.70-6.10); White Blood Count 10.60 K/ul (4.8-10.8)
[2025-03-24 06:52] LABS: Immature Granulocytes # (auto) 0.04 K/uL (0.01-0.20); Immature Granulocytes % (auto) 0.4 %; Mean Corpuscular Hemoglobin 23.4 pg (25.0-34.0); Mean Corpuscular Volume 77.1 fL (80.0-100.0); Platelet Count 430 K/uL (130-400); RDW Standard Deviation 41.2 fL (36.4-46.3)
[2025-03-24 07:15] LABS: Anion Gap 5.0 (3-11); Blood Urea Nitrogen 10.0 mg/dl (6-23); Calcium 8.4 mg/dl (8.6-10.3); Carbon Dioxide 28.0 mmol/L (21-32); Chloride 106.0 mmol/L (98-107); Creatinine Clr Calc Pharmacy 118.8 ml/min; Glucose 150.0 mg/dl (70-99(Fasting)); Potassium 4.3 mmol/L (3.5-5.1); Sodium 139.0 mmol/L (136-145)
--- NOTE | 2025-03-24 09:21 | Surgery Progress Note ---
Date of Service March 24, 2025 Assessment & Plan (1) Perforated appendicitis: Plan: POD #1 Diagnostic Laparoscopy, Evacuation of Abdominal Ascites and Insertion of Drain. WBC within normal limits this morning (10.60). Afebrile overnight He is doing well with no concerns on physical exam. He is tolerating regular diet. Drain in place with serosang output. Encourage ambulation. Pt will need to continue to follow with GI as outpatient- will need colonoscopy in several weeks once he is recovered from recent surgery to further evaluate suspicions of Crohn's. Pt seen and evaluated with Dr. Mike Admission and Anticipated Discharge Date Admission Date: March 22, 2025 Supervising Physician Co-Signing Physician Notes Postop day 1 diagnostic laparoscopy with abdominal washout and drain placement He seems to be overall better and his leukocytosis is improved He has no fever and has been tolerating a diet I think we will continue his antibiotics and see how he does over the next 24 to 48 hours The ultimate plan would be to get him out of the hospital and refer him for a colonoscopy in 6 to 8 weeks An interval appendectomy is also a possibility down the road once his inflammation has resolved Surgery will follow Subjective Jonathan is doing ok this morning. He does report continued abdominal pain with some episodic rectal pain. He denies any nausea or vomiting. He did tolerate regular diet for breakfast this morning. Physical Exam Physical Exam: Abdomen tender at incision sites with palpation. Drain in place with serosang output. No signs of infection on exam. Constitutional: WD/WN, vitals as above Results & Data Vital Signs (Past 12 Hours) Vital Signs Temp Pulse Resp BP Pulse Ox O2 Del Method 03/24/25 07:39 36.5 C 54 L 16 99/58 L 97 Room Air 03/24/25 01:40 36.5 C 76 16 107/86 96 Room Air 03/23/25 23:36 36.5 C 84 16 99/52 L 98 Room Air PG Care Time/CCT Total # of Minutes Spent Total Time Spent with Patient: Total time spent is greater than 50% in coordination of care (as documented) at patient's floor/unit and/or counseling patient: Coding Level of Care Code 36390 Post Operative Follow-Up Diagnoses Perforated appendicitis K35.32
--- NOTE | 2025-03-24 16:38 | Hospitalist Progress Note ---
Date of Service March 24, 2025 Assessment & Plan (1) Acute appendicitis: (2) Anemia: Plan 20 [id number] PMHx of recent history of appendicitis with perforation. He was advised to see GI for EGD and colonoscopy given his stomach upset and Fhx of crohn disease. he was admitted from 03/18--03/20 for appendicitis with contained perforation and provided with augmentin. presenting for abdominal pain. ED evaluation is concerning for persistent appendicitis with evidence of leukocytosis and anemia on labs he's was admitted for appenditis and s/p diagnositc laparoscopy, evacuatoin of abdominal ascites and insertion of drainaged by Dr. Jessica Tabares on 03/23/2025 # acute Appendicitis with perforation (03/18/2025 to 03/20/2025) for appendicitis with contained perforation, managed medically on Augmentin. s/p diagnostic laparoscopy and evacuation of abdominal ascites and insertion of drainage by Dr. Jessica Hampton 03/23 he's on zosyn, he still on drainage he's is now on regular diet and tolerating it well abdominal discomfort per GI note, he was having abdominal pain, nausea and diarrhea seen by GI and recommended f/u with [facility] outpatient colonoscopy in 6-8 weeks to r/o IBD (noted FHx of Crohn disease) Pain control: Acetaminophen prn pain/fever, morphine prn severe pain #Anemia Appearing to run at his baseline per our labs. Not noting any bleeding by his report. iron studies consistent with iron deficiency anemia last admission, B12 and folate and TSH WNL Dispo: continued inpatient stay for IV antibiotics, awaiting surgical input VTE Prophylaxis: SCDs mother updated at bedside 03/24 Admission and Anticipated Discharge Date Admission Date: March 22, 2025 Subjective no worsening abdominal pain has discomfort around the drainage sites WBC is now downgrading his mother is updated at bedside Physical Exam Physical Exam: VITALS: Reviewed. WEIGHT/BMI reviewed. GEN: Healthy appearing, well-developed, NAD. PSYCH: Good Judgment. AOx3. Normal memory, mood, and affect. HEENT -Head: NC/AT; NECK: Supple, with no masses. CV: RRR, no m/r/g. LUNGS: CTAB, no w/r/c. ABD: Soft, NT/ND, NBS, no masses or organomegaly. + for drainage around the abdomen : N/A SKIN: Warm, well perfused. No skin rashes or abnormal lesions. MSK: No deformities, Normal gait. EXT: No clubbing, cyanosis, or edema. Results & Data Results & Data Vital Signs (Past 12 Hours) Vital Signs Temp Pulse Resp BP Pulse Ox O2 Del Method 03/24/25 15:11 36.8 C 58 L 16 104/56 L 99 Room Air 03/24/25 07:39 36.5 C 54 L 16 99/58 L 97 Room Air Laboratory Results Laboratory Results - last 72 hr 03/22/25 03/23/25 03/24/25 03:03 08:19 06:28 WBC 13.74 H 17.43 H 10.60 RBC 4.70 4.53 L 4.06 L Hgb 11.0 L 10.6 L 9.5 L Hct 35.3 L 34.4 L 31.3 L MCV 75.1 L 75.9 L 77.1 L MCH 23.4 L 23.4 L 23.4 L MCHC 31.2 L 30.8 L 30.4 L RDW Std Deviation 39.4 40.3 41.2 RDW Coeff of Merly 14.6 H 14.9 H 15.0 H Plt Count 481 H 442 H 430 H MPV 8.3 L 8.5 L 8.5 L Immature Gran % (Auto) 0.6 0.4 Neut % (Auto) 80.6 88.5 Lymph % (Auto) 10.3 6.6 [place] % (Auto) 6.5 4.3 Eos % (Auto) 1.8 0.1 Baso % (Auto) 0.2 0.1 Neut # (Auto) 11.07 H 9.38 H Lymph # (Auto) 1.42 0.70 L [place] # (Auto) 0.89 H 0.46 Eos # (Auto) 0.25 0.01 Baso # (Auto) 0.03 0.01 Immature Gran # (Auto) 0.08 0.04 PT 12.3 H INR 1.1 APTT 33 H PTT Ratio 1.2 Sodium 135 L 138 139 Potassium 3.7 4.1 4.3 Chloride 104 107 106 Carbon Dioxide 25 26 28 Anion Gap 6 5 5 BUN 15 9 10 Creatinine 0.98 0.83 0.85 Est Cr Clr Drug Dosing 103.1 121.7 118.8 eGFR 113.21 128.50 127.57 BUN/Creatinine Ratio 15.3 10.8 11.8 Glucose 133 H 95 150 H Lactate 1.3 Calcium 9.1 8.7 8.4 L Total Bilirubin 0.2 AST 14 ALT 13 Alkaline Phosphatase 57 Total Protein 7.1 Albumin 3.4 Globulin 3.7 Albumin/Globulin Ratio 0.9 Lipase 36 Urine Color Yellow Urine Appearance Clear Urine pH 7.0 Ur Specific [place] 1.021 Urine Protein Negative Urine Glucose (UA) Negative Urine Ketones Negative Urine Blood Negative Urine Nitrite Negative Urine Bilirubin Negative Urine Urobilinogen Negative Ur Leukocyte Esterase Negative Urine Comment Medications Administered Current Inpatient Medications Acetaminophen (Acetaminophen 500 Mg Tab) 1,000 mg PO Q8H PRN PRN Reason: Pain & Pre PT Stop: 04/21/25 05:41 Last Admin: 03/24/25 15:28 Dose: 1,000 mg Lactated Ringer's (Lr) 1,000 mls @ 100 mls/hr IV .Q10H ROWDY Stop: 03/25/25 05:44 Last Admin: 03/24/25 09:09 Dose: 100 mls/hr Piperacillin Sod/Tazobactam Sod (Zosyn) 4.5 gm in 100 mls @ 25 mls/hr IV Q8H ROWDY; Protocol Stop: 04/01/25 09:29 Last Infusion: 03/24/25 13:18 Dose: Infused Acetaminophen (Ofirmev) 1,000 mg in 100 mls @ 400 mls/hr IV Q8H PRN PRN Reason: Pain or Fever Stop: 03/25/25 03:39 Last Infusion: 03/23/25 04:19 Dose: Infused Melatonin (Melatonin 3 Mg Tab) 3 mg PO HS PRN PRN Reason: Insomnia Stop: 04/21/25 09:00 Morphine Sulfate (Morphine Sulfate 2 Mg/Ml Carp) 2 mg IV Q3H PRN PRN Reason: Pain (1,2,3,4,5) & Pre PT Stop: 04/05/25 05:41 Morphine Sulfate (Morphine Sulfate 4 Mg/Ml 1 Ml Carp\Vial) 4 mg IV Q3H PRN PRN Reason: Pain (6,7,8,9,10) Stop: 04/05/25 05:41 Last Admin: 03/23/25 04:42 Dose: 4 mg Ondansetron HCl (Ondansetron Inj 2 Mg/Ml 2 Ml Vial) 4 mg IV Q6H PRN PRN Reason: Nausea Stop: 04/21/25 09:00 Oxycodone HCl (Oxycodone Hcl Ir 5 Mg Tab (Immediate Release)) 5 mg PO Q4H PRN PRN Reason: Moderate Pain (Scale 4, 5, 6) Stop: 04/06/25 18:36 Oxycodone HCl (Oxycodone Hcl Ir 5 Mg Tab (Immediate Release)) 10 mg PO Q4H PRN PRN Reason: Severe Pain (Scale 7, 8, 9,10) Stop: 04/06/25 18:36 Last Admin: 03/23/25 20:34 Dose: 10 mg PG Care Time/CCT Total # of Minutes Spent Total Time Spent with Patient: Total time spent is greater than 50% in coordination of care (as documented) at patient's floor/unit and/or counseling patient: Coding Level of Care Code 28250 SUB INP/OBS CARE 08/12MIN Diagnoses Acute appendicitis K35.33 Acute appendicitis type: with localized peritonitis Appendicitis abscess presence: with abscess Appendicitis gangrene presence: unspecified whether gangrene present Appendicitis perforation presence: unspecified whether perforation present Anemia D64.9 Time Spent (min) 20 (1) Acute appendicitis Acute appendicitis type: with localized peritonitis Appendicitis abscess presence: with abscess Appendicitis gangrene presence: unspecified whether gangrene present Appendicitis perforation presence: unspecified whether perforation present Qualified Code(s): K35.33 - Acute appendicitis with perforation, localized peritonitis, and gangrene, with abscess
[2025-03-25 07:06] LABS: Hematocrit (blood only) 30.2 % (42.0-52.0); Hemoglobin 9.3 g/dl (14.0-18.0); Mean Corpuscular Hemoglobin 23.9 pg (25.0-34.0); Mean Corpuscular Volume 77.6 fL (80.0-100.0); Platelet Count 423 K/uL (130-400); RDW Standard Deviation 42.5 fL (36.4-46.3); Red Blood Count 3.89 M/uL (4.70-6.10); White Blood Count 7.72 K/ul (4.8-10.8)
[2025-03-25 07:36] LABS: Alanine Aminotransferase 17.0 U/L (7-52); Albumin Globulin Ratio 1.0 (0.9-2); Alkaline Phosphatase 45.0 U/L (34-104); Anion Gap 4.0 (3-11); Bilirubin,Total 0.2 mg/dl (0.2-1.0); Blood Urea Nitrogen 11.0 mg/dl (6-23); Calcium 8.5 mg/dl (8.6-10.3); Carbon Dioxide 30.0 mmol/L (21-32); Chloride 109.0 mmol/L (98-107); Creatinine Clr Calc Pharmacy 112.2 ml/min; Globulin 2.9 gm/dl (2.5-4.0); Glucose 90.0 mg/dl (70-99(Fasting)); Potassium 4.1 mmol/L (3.5-5.1); Sodium 143.0 mmol/L (136-145); Total Protein 5.8 gm/dl (6.0-8.3)
--- NOTE | 2025-03-25 09:04 | Surgery Progress Note ---
Date of Service March 25, 2025 Assessment & Plan (1) Perforated appendicitis: Plan: He is postop day 2 diagnostic laparoscopy, washout and drain placement His leukocytosis has resolved and he is afebrile He is tolerating a regular diet, but having some difficulty having a bowel movement I think he just needs some more time, we will check back on him later this afternoon and see if he is feeling better for possible discharge later today versus tomorrow (2) Abnormal computerized axial tomography of abdomen: Admission and Anticipated Discharge Date Admission Date: March 22, 2025 Subjective Patient seen and examined. Still with abdominal pain in the right lower quadrant. Denies any nausea or vomiting. Is passing some flatus, but has not had a bowel movement for 2 to 3 days. Physical Exam Constitutional: WD/WN, vitals as above Gastrointestinal (Abdomen): Soft, appropriately tender, drain in the right lower quadrant with serosanguineous fluid Results & Data Vital Signs (Past 12 Hours) Vital Signs Temp Pulse Resp BP Pulse Ox O2 Del Method 03/25/25 07:12 36.4 C L 58 L 16 109/65 100 Room Air 03/25/25 00:09 36.5 C 60 16 111/69 97 Room Air PG Care Time/CCT Total # of Minutes Spent Total Time Spent with Patient: Total time spent is greater than 50% in coordination of care (as documented) at patient's floor/unit and/or counseling patient: Coding Level of Care Code 10673 Post Operative Follow-Up Diagnoses Perforated appendicitis K35.32 Abnormal computerized axial tomography of abdomen R93.5
--- NOTE | 2025-03-25 13:21 | Hospitalist Progress Note ---
Date of Service March 25, 2025 Assessment & Plan (1) Acute appendicitis: (2) Anemia: Plan 19 [id number] PMHx of recent history of appendicitis with perforation. He was advised to see GI for EGD and colonoscopy given his stomach upset and Fhx of crohn disease. he was admitted from 03/18--03/20 for appendicitis with contained perforation and provided with augmentin. presenting for abdominal pain. ED evaluation is concerning for persistent appendicitis with evidence of leukocytosis and anemia on labs he's was admitted for appenditis and s/p diagnositc laparoscopy, evacuatoin of abdominal ascites and insertion of drainaged by Dr. Jessica Tabares on 03/23/2025 # acute Appendicitis with perforation (03/18/2025 to 03/20/2025) for appendicitis with contained perforation, managed medically on Augmentin. s/p diagnostic laparoscopy and evacuation of abdominal ascites and insertion of drainage by Dr. Jessica Hampton 03/23 he's on zosyn, he still on drainage he's is now on regular diet and tolerating it well constipation-started senna on Wednesday abdominal discomfort per GI note, he was having abdominal pain, nausea and diarrhea seen by GI and recommended f[place] [facility] [place] in 6-8 weeks to r/o IBD (noted FHx of Crohn disease) Pain control: Acetaminophen prn pain/fever, morphine prn severe pain #Anemia Appearing to run at his baseline per our labs. Not noting any bleeding by his report. iron studies consistent with iron deficiency anemia last admission, B12 and folate and TSH WNL repeat iron panel per father requested Dispo: continued inpatient stay for IV antibiotics. still in uncontrolled pain VTE Prophylaxis: SCDs mother updated at bedside 03/24 Admission and Anticipated Discharge Date Admission Date: March 22, 2025 Subjective still have significant pain around the drainage site no bowel movement, started on senna. father at bedside, has concern about decrease h/H level discussed likely multifactorial, surgery, dilatational potential anemia of chronic disease. patient denied hematuria, melena discussed with father that patient need to wait minimal of 6 weeks (possibly longer) prior to colonoscopy and EGD extensive FHx of inflammatory bowel disease Physical Exam Physical Exam: VITALS: Reviewed. WEIGHT/BMI reviewed. GEN: Healthy appearing, well-developed, NAD. -Head: NC/AT; -Eyes: PERRL, EOMI. No discharge or redn ess; NECK: Supple, with no masses. CV: RRR, no m/r/g. LUNGS: CTAB, no w/r/c. ABD: Soft, NT/ND, NBS, no masses or organomegaly. + for MIGUEL drain. : N/A SKIN: pale MSK: No deformities, Normal gait. EXT: No clubbing, cyanosis, or edema. Results & Data Results & Data Vital Signs (Past 12 Hours) Vital Signs Temp Pulse Resp BP Pulse Ox O2 Del Method 03/25/25 07:12 36.4 C L 58 L 16 109/65 100 Room Air Laboratory Results Laboratory Results - last 72 hr 03/23/25 03/24/25 03/25/25 08:19 06:28 06:47 WBC 17.43 H 10.60 7.72 RBC 4.53 L 4.06 L 3.89 L Hgb 10.6 L 9.5 L 9.3 L Hct 34.4 L 31.3 L 30.2 L MCV 75.9 L 77.1 L 77.6 L MCH 23.4 L 23.4 L 23.9 L MCHC 30.8 L 30.4 L 30.8 L RDW Std Deviation 40.3 41.2 42.5 RDW Coeff of Merly 14.9 H 15.0 H 15.3 H Plt Count 442 H 430 H 423 H MPV 8.5 L 8.5 L 8.6 L Immature Gran % (Auto) 0.4 Neut % (Auto) 88.5 Lymph % (Auto) 6.6 [place] % (Auto) 4.3 Eos % (Auto) 0.1 Baso % (Auto) 0.1 Neut # (Auto) 9.38 H Lymph # (Auto) 0.70 L [place] # (Auto) 0.46 Eos # (Auto) 0.01 Baso # (Auto) 0.01 Immature Gran # (Auto) 0.04 Sodium 138 139 143 Potassium 4.1 4.3 4.1 Chloride 107 106 109 H Carbon Dioxide 26 28 30 Anion Gap 5 5 4 BUN 9 10 11 Creatinine 0.83 0.85 0.90 Est Cr Clr Drug Dosing 121.7 118.8 112.2 eGFR 128.50 127.57 125.39 BUN/Creatinine Ratio 10.8 11.8 12.2 Glucose 95 150 H 90 Calcium 8.7 8.4 L 8.5 L Total Bilirubin 0.2 AST 16 ALT 17 Alkaline Phosphatase 45 Total Protein 5.8 L Albumin 2.9 L Globulin 2.9 Albumin/Globulin Ratio 1.0 Medications Administered Current Inpatient Medications Acetaminophen (Acetaminophen 500 Mg Tab) 1,000 mg PO Q8H PRN PRN Reason: Pain & Pre PT Stop: 04/21/25 05:41 Last Admin: 03/24/25 15:28 Dose: 1,000 mg Piperacillin Sod/Tazobactam Sod (Zosyn) 4.5 gm in 100 mls @ 25 mls/hr IV Q8H ROWDY; Protocol Stop: 04/01/25 09:29 Last Infusion: 03/25/25 13:10 Dose: Infused Melatonin (Melatonin 3 Mg Tab) 3 mg PO HS PRN PRN Reason: Insomnia Stop: 04/21/25 09:00 Morphine Sulfate (Morphine Sulfate 2 Mg/Ml Carp) 2 mg IV Q3H PRN PRN Reason: Pain (1,2,3,4,5) & Pre PT Stop: 04/05/25 05:41 Morphine Sulfate (Morphine Sulfate 4 Mg/Ml 1 Ml Carp\Vial) 4 mg IV Q3H PRN PRN Reason: Pain (6,7,8,9,10) Stop: 04/05/25 05:41 Last Admin: 03/23/25 04:42 Dose: 4 mg Ondansetron HCl (Ondansetron Inj 2 Mg/Ml 2 Ml Vial) 4 mg IV Q6H PRN PRN Reason: Nausea Stop: 04/21/25 09:00 Oxycodone HCl (Oxycodone Hcl Ir 5 Mg Tab (Immediate Release)) 5 mg PO Q4H PRN PRN Reason: Moderate Pain (Scale 4, 5, 6) Stop: 04/06/25 18:36 Oxycodone HCl (Oxycodone Hcl Ir 5 Mg Tab (Immediate Release)) 10 mg PO Q4H PRN PRN Reason: Severe Pain (Scale 7, 8, 9,10) Stop: 04/06/25 18:36 Last Admin: 03/25/25 06:30 Dose: 10 mg Sennosides (Senna 8.6 Mg Tab) [facility] [place]: 10/07/25 12:29 PG Care Time/CCT Total # of Minutes Spent Total Time Spent with Patient: Total time spent is greater than 50% in coordination of care (as documented) at patient's floor/unit and/or counseling patient: Coding Level of Care Code 77461 SUB INP/OBS CARE 08/12MIN Diagnoses Acute appendicitis K35.33 Acute appendicitis type: with localized peritonitis Appendicitis abscess presence: with abscess Appendicitis gangrene presence: unspecified whether gangrene present Appendicitis perforation presence: unspecified whether perforation present Anemia D64.9 Time Spent (min) 25 (1) Acute appendicitis Acute appendicitis type: with localized peritonitis Appendicitis abscess presence: with abscess Appendicitis gangrene presence: unspecified whether gangrene present Appendicitis perforation presence: unspecified whether perforation present Qualified Code(s): K35.33 - Acute appendicitis with perforation, localized peritonitis, and gangrene, with abscess
[2025-03-25 13:39] LABS: Reticulocytes # 0.050 10^6/uL (0.020-0.100)
[2025-03-25 13:48] LABS: Iron 38.0 mcg/dl (35-175); Transferrin 173.0 mg/dl (200-360)
[2025-03-25] MEDS: SENNA 8.6 MG TAB PO SCH (14:00)
[2025-03-25 14:09] LABS: Ferritin 124.0 ng/ml (8-388)
--- NOTE | 2025-03-25 15:04 | Surgery Progress Note ---
Date of Service March 25, 2025 Assessment & Plan (1) Perforated appendicitis: (2) Abnormal computerized axial tomography of abdomen: Plan: I reassured Jonathan and his father that we are absolutely monitoring all labs and imaging studies. Pt's father is concerned about decrease in Hgb and Hct- we reviewed that this can be due to many different factors- recent surgery, IV fluids, as well as possible chronic disease (i.e. Crohn's disease). Pt's father requested a more detailed anemia workup- Medicine team will initiate Pt would like to stay at least one more night, which I feel is reasonable. Dr. Hampton will be in to see patient tomorrow. Dr. Mike updated. Admission and Anticipated Discharge Date Admission Date: March 22, 2025 Subjective Patient resting in bed, still having pain, especially at drain insertion site. Father is at bedside, expressing concern about Hgb and Hct levels as well as timeframe for colonoscopy. He feels that his son should have a coloscopy sooner than the recommended 6-8 week timeframe. Ramana does feel that he is ok to go home, but feels that it might be best to stay until tomorrow to see Dr. Hampton. Physical Exam Constitutional: WD/WN, vitals as above Gastrointestinal (Abdomen): Soft, appropriately tender, drain in the right lower quadrant with serosanguineous fluid Results & Data Vital Signs (Past 12 Hours) Vital Signs Temp Pulse Resp BP Pulse Ox O2 Del Method 03/25/25 07:12 36.4 C L 58 L 16 109/65 100 Room Air PG Care Time/CCT Total # of Minutes Spent Total Time Spent with Patient: Total time spent is greater than 50% in coordination of care (as documented) at patient's floor/unit and/or counseling patient: Coding Level of Care Code 94774 Post Operative Follow-Up Diagnoses Perforated appendicitis K35.32 Abnormal computerized axial tomography of abdomen R93.5
--- NOTE | 2025-03-26 07:19 | Surgery Progress Note ---
Date of Service March 26, 2025 Assessment & Plan (1) Perforated appendicitis: Plan: Original CT appearance questioned Crohn's Phlegmon at the RLQ WBC elevated this am May discuss this case with colorectal surgery for consultation and further management if available here or may request transfer to [facility] [place] Admission and Anticipated Discharge Date Admission Date: March 22, 2025 Subjective Pt without complaints. Admits to soreness at incisions. Physical Exam Constitutional: + thin; not ill appearing, not in distre ss and not diaphoretic Respiratory: normal respiratory effort; no respiratory distress, no labored breathing and does not use accessory muscles Gastrointestinal (Abdomen): Abdomen is non-distended Laparoscopic incisions are coapted without evidence for infection, no ecchymosis MIGUEL drain with scant serous drainage 205 last 24 hrs recorded. Results & Data Vital Signs (Past 12 Hours) Vital Signs Temp Pulse Resp BP Pulse Ox O2 Del Method 03/26/25 00:55 36.7 C 65 16 104/61 100 Room Air PG Care Time/CCT Total # of Minutes Spent Total Time Spent with Patient: Total time spent is greater than 50% in coordination of care (as documented) at patient's floor/unit and/or counseling patient: Coding Level of Care Code 15306 Post Operative Follow-Up Diagnoses Perforated appendicitis K35.32
[2025-03-26 07:25] LABS: Hematocrit (blood only) 32.2 % (42.0-52.0); Hemoglobin 10.1 g/dl (14.0-18.0); Mean Corpuscular Hemoglobin 24.2 pg (25.0-34.0); Mean Corpuscular Volume 77.0 fL (80.0-100.0); Platelet Count 454 K/uL (130-400); RDW Standard Deviation 41.8 fL (36.4-46.3); Red Blood Count 4.18 M/uL (4.70-6.10); White Blood Count 12.01 K/ul (4.8-10.8)
[2025-03-26 07:51] LABS: Alanine Aminotransferase 49.0 U/L (7-52); Albumin Globulin Ratio 1.0 (0.9-2); Alkaline Phosphatase 77.0 U/L (34-104); Anion Gap 5.0 (3-11); Bilirubin,Total 0.3 mg/dl (0.2-1.0); Blood Urea Nitrogen 12.0 mg/dl (6-23); Calcium 8.6 mg/dl (8.6-10.3); Carbon Dioxide 31.0 mmol/L (21-32); Chloride 103.0 mmol/L (98-107); Creatinine Clr Calc Pharmacy 102.0 ml/min; Globulin 3.0 gm/dl (2.5-4.0); Glucose 90.0 mg/dl (70-99(Fasting)); Potassium 4.0 mmol/L (3.5-5.1); Sodium 139.0 mmol/L (136-145); Total Protein 6.0 gm/dl (6.0-8.3)
[2025-03-26 15:12] VITALS: BP 111/71; PULSE 97; RESP 20; TEMP 98.6; O2SAT 98
--- NOTE | 2025-03-26 18:21 | Discharge Summary ---
Discharge Summary Date of Service March 26, 2025 Principal Dx & Hospital Course #1 = Principal Diagnosis (1) Acute appendicitis: Mr. Kaykay Turner is a 19 yo with no significant PMH, but extensively Fhx of inflammatory bowel disease he's been having upper abdominal pain discomfort but never has EGD, also been having bloating and diarrhea over the summer vacation. on Mar 18, 2025, he's came to our hosptial with RLQ pain and found to has ac seneca appendicits with contained perforation. also found cecal wall thickening his CT abdomen found distended appendix at 2cm, and also found 7.5cm complex lesion in the RLQ contain a small bubble of air he was evaluated by surgery (Dr. Jasmeet Qiu). on that admission, seen by GI and defer colonoscopy till 6-8 weeks until appendicitis is address he was provided with IV zosyn and then dc mar on augmentin. on mar 22, 2025, he's return to the hospital with 9/10 RLQ pain and found to has C scan found severe concentric wall thickening involving the cecum, ileocecal junction and terminal ileium. also found inflammed appendix about 1tmm and severe fat stranding noted in the right iliac fossa. moderate ascites fluid. he's was seek to OR on Wednesday (mar 23, 2025) , our surgeon, Dr. Mathias performed diagnostic laparoscopy, evaucation of abdominal ascites and insertion and drain per surgery operative noted Once this pressure was reached, a 5mm trocar was inserted under direct visualization using a 5 mm laparoscope and an Optiview port. Physiologic fluid was identified in the pelvis and this was suctioned away. A dense and thickened appearing omentum was adhesed along the right paracolic sidewall extending to the anterior abdomen. This was able to be slowly and gently teased down to mobilize this area for further inspection. There were a few small areas of exudative debris identified that were removed. What appeared to be a small portion of cecum and terminal ileum were densely adhesed to the thickened, firm omentum with no plane of dissection appearing to be heavy phlegmon. Secondary to the inability to safely dissect in this area to find an appendix, this was left in situ for ongoing conservative management. The physiologic fluid had been thoroughly suctioned away. A 19 [place] MIGUEL drain was inserted from a separate incision created at the right lower quadrant and the drain was placed to extend into the pelvis. The instruments were removed. CO2 insufflation was discontinued and excess pneumoperitoneum was evacuated. The trocars were removed. Additional local anesthetic was used to anesthetize the skin incisions. The infraumbilical and left lower quadrant 5 mm trocar sites were approximated the level of the skin using 4-0 Vicryl suture. he was maintain on zosyn and continue to has MIGUEL drainage sunction. however, despite his zosyn patient continue to mentioned ongoing abdominal pain and WBC level. surgery team requested patient to be transfer to [facility] to evaluate the abnormal cecum lesion and involve the [place] team for complex procedure he will benefit from GI and ID evaluation while at [facility] despite being a 19 year old, he's ill appearing he was accepted by Dr. Freeman at [place] [facility]. he's received his most recently dose of zosyn at 6pm communicated with Dr. Mathias,communicated with Dr. Freeman reviewed lab, reviewed CT imaging, discussed plan of care with father and patient. (2) Anemia: Plan 19 [id number] PMHx of recent history of appendicitis with perforation. He was advised to see GI for EGD and colonoscopy given his stomach upset and Fhx of crohn disease. he was admitted from 03/18--03/20 for appendicitis with contained perforation and provided with augmentin. presenting for abdominal pain. ED evaluation is concerning for persistent appendicitis with evidence of leukocytosis and anemia on labs he's was admitted for appenditis and s/p diagnositc laparoscopy, evacuatoin of abdominal ascites and insertion of drainaged by Dr. Jessica Tabares on 03/23/2025 # acute Appendicitis with perforation (03/18/2025 to 03/20/2025) for appendicitis with contained perforation, managed medically on Augmentin. s/p diagnostic laparoscopy and evacuation of abdominal ascites and insertion of drainage by Dr. Jessica Hampton 03/23 he's on zosyn, he still on drainage he's is now on regular diet and tolerating it well constipation-started senna on Wednesday abdominal discomfort per GI note, he was having abdominal pain, nausea and diarrhea seen by GI and recommended f/u with [facility] outpatient colonoscopy in 6-8 weeks to r/o IBD (noted FHx of Crohn disease) Pain control: Acetaminophen prn pain/fever, morphine prn severe pain #Anemia Appearing to run at his baseline per our labs. Not noting any bleeding by his report. iron studies consistent with iron deficiency anemia last admission, B12 and folate and TSH WNL repeat iron panel per father requested Dispo: continued inpatient stay for IV antibiotics. still in uncontrolled pain VTE Prophylaxis: SCDs mother updated at bedside 03/24 Notes For Next Care Provider appreciate surgery and GI input about the cecal inflammation defer to surgery team about small bowel imaging. Admission HPI Per Admitting Provider 19 [id number] PMHx with recent appendicitis with perforation presenting for abdominal pain. Most recent hospital admission 03/18-03/20 for acute appendicitis with perforation, managed medically at that time and d/c home on oral antibiotics. Worsening of symptoms day [employer]. States that he felt better at the time of his discharge from the hospital, but the day [employer] he started to experience recurrence of pain that was "at the appendix" and started to become more severe in nature. He describes it as a sharp pain that is an 9-10/10 on the pain scale at its worse and mainly only exacerbated with movement. When laying still, his pain is fairly controlled. He denies N/V/D. He has had some constipation, stating he has not had a normal BM since prior to his last hospital admission, is still passing gas however. Has not noticed bleeding anywhere. Denies F/C, CP, SOB, palpitations, weakness, dizziness, syncope, or falls. Was taking medications as prescribed. ED evaluation reveals CBC with leukocytosis 13.74, H/H 11.0/35.3, microcytic/hypochromic pattern, plt 481; CMP Na 135, glucose 133; lactate 1.3; UA negative for infection; CTAP severe concentric wall thickening with adjacent fat smudging, appendix inflamed at max 16mm with severe fat stranding and evidence of possible perforation, moderate ascitic free fluid noted, no obvious pneumoperitoneum.; Provided with 1L NSS, Zosyn 4.5g IV, Zofran 4mg IV, and morphine 4mg IV in ED. Please see Dr. De Luna's attestation for adjustments/additions to treatment plan. Discharge Exam VITALS: Reviewed. WEIGHT/BMI reviewed. GEN: ill apearing PSYCH: Good Judgment. AOx3. Normal memory, mood, and affect. HEENT -Head: NC/AT; -Ears: External ears are normal. Normal TMs. -Nose: Normal nares. CV: RRR, no m/r/g. LUNGS: CTAB, no w/r/c. ABD: Soft, NT/ND, NBS, no masses or organomegaly. + for MIGUEL drain. : N/A skin: pale MSK: No deformities, Normal gait. EXT: No clubbing, cyanosis, or edema. NEURO: AAOx3 Discharge Plan Discharge Items Patient Disposition: Transfer Acute Care Hospital Reason For Visit: APPENDICITIS Discharge Diagnosis: diagnostic laparoscopy abdominal washout Condition on Discharge: Fair Health Concerns: patient parents will call [facility] Activity: Per Instructions section Lifting: Gradually increase as tolerated and No more than 10 pounds Bathing Comment: may shower; no soaking in tubs/pools x 2 weeks Exercise/Sports: Wait until after follow-up appointment Driving/Machine Use: no driving while taking narcotics for pain Non-emergency contact: Primary Care Provider and Surgeon Call non-emergency contact if: you have any medication questions, your symptoms worsen, your pain is worsening, you have a fever, your temperature is above 101.5, your wound has increased redness, your wound has increased drainage and your wound pain has increased Follow-up/Referrals: Jessica Hampton DO [Physician] - (please call to schedule follow up in the office in 1 week) PCP,NO [Primary Care Provider] - Diet: Regular Diet Comment: no undercook foods; no spicy foods or unfamiliar foods. Addtl Attending Provider Instructions: SPECIAL CARE INSTRUCTIONS: * You have skin glue over your incisions called dermabond. you may shower with this on. It will tend to dissolve and fall off within a couple weeks. Do not pick at the skin glue * Please care for your srugical drain as you have been instructed prior to discharge from the hospital. empty drain 2-3x/daily and record output. Keep drain to bulb suction at all times outside of emptying it. bring a log with you to the office of the output * You may shower. NO soaking in pools or baths for 2 weeks * No lifting greater than 10lbs. No strenuous exercise until cleared by surgeon. Light walking is accepted. * No driving while taking narcotic pain medication; wait at least 3 days * No drinking alcohol while taking narcotic pain medication * May use Ibuprofen/Tylenol over the counter for pain as tolerated. Do not exceed 3grams of Tylenol per 24 hours * Expect some swelling and bruising. * Diet- you may resume your regular diet Call your doctor if: * Temperature above 101 degrees, nausea/vomiting, fever/chills * Pain not relieved by pain medicine ordered * There is increased drainage or redness from any incision * You have any unanswered questions or concerns [phone]. FOLLOW UP VISIT: If not already scheduled, please call the office for a follow-up visit. Office Pending Studies at Discharge: Yes Studies:: repeat abdominal imaging Stand-Alone Forms: My [facility] Skilled Items Patient informed of condition?: Yes DNR: No Discharge Level of Care: Other Communicable Disease: No Discharge Prognosis: Deteriorating Lines: None Urinary Catheter: No Medications and DC Order Prescriptions: Continued multivitamin Tablet 1 tab PO DAILY Rx Instructions: PER PT "OFF AND ON FOR A COUPLE DAYS". Probiotic 10 billion cell Capsule 10,000 mmu cells PO DAILY Rx Instructions: PER PT "OFF AND ON FOR A COUPLE DAYS". amoxicillin-pot clavulanate 875-125 mg tablet 1 tab PO BID Qty: 20 0RF Krames/Other Patient Handouts: Colonoscopy Admission Data Admit Date/Time: 03/22/25 05:41 Attending Provider: Yue Castillo Admit Provider: Phyllis De Luna Primary Care Provider: PCP,NO Other Providers: Jessica Hampton; Phyllis De Luna Hospital Stay Data Consultations 03/22/25 05:11 Consult General Surgery Stat 03/22/25 05:21 ED Decision to Admit Stat Procedures Performed Operation Date: 03/23/25 08:40 Actual Procedures p Diagnostic Laparoscopy, Evacuation of Abdominal Ascites and Insertion of Drain. (Not Applicable) - Jessica Hampton DO Diagnostic Imagining Performed 03/22/25 02:43 CT abd pelvis IV con only Stat Pending Results Patient Have Any Pending Studies at Discharge: Yes Discharge Instructions Given to Patient (Per Discharging Provider) SPECIAL CARE INSTRUCTIONS: * You have skin glue over your incisions called dermabond. you may shower with this on. It will tend to dissolve and fall off within a couple weeks. Do not pick at the skin glue * Please care for your srugical drain as you have been instructed prior to discharge from the hospital. empty drain 2-3x/daily and record output. Keep drain to bulb suction at all times outside of emptying it. bring a log with you to the office of the output * You may shower. NO soaking in pools or baths for 2 weeks * No lifting greater than 10lbs. No strenuous exercise until cleared by surgeon. Light walking is accepted. * No driving while taking narcotic pain medication; wait at least 3 days * No drinking alcohol while taking narcotic pain medication * May use Ibuprofen/Tylenol over the counter for pain as tolerated. Do not exceed 3grams of Tylenol per 24 hours * Expect some swelling and bruising. * Diet- you may resume your regular diet Call your doctor if: * Temperature above 101 degrees, nausea/vomiting, fever/chills * Pain not relieved by pain medicine ordered * There is increased drainage or redness from any incision * You have any unanswered questions or concerns [phone]. FOLLOW UP VISIT: If not already scheduled, please call the office for a follow-up visit. Office Total Time Total Time Spent Total Time Spent (In Minutes): 75 minutes Coding Level of Care Code 34818 INP/OBS DISCH >30 MIN Diagnoses Acute appendicitis K35.33 Acute appendicitis type: with localized peritonitis Appendicitis abscess presence: with abscess Appendicitis gangrene presence: unspecified whether gangrene present Appendicitis perforation presence: unspecified whether perforation present Anemia D64.9 Time Spent (min) 65
== END 2025-03-26 19:53 | disposition short-term general hospital (02) | DRG 357 ==
LOC: SUATTDRO → ED 02:31 → SUATTDRO 05:41 → EDINP 05:41 → 3W 15:42